=== PATIENT | male | born 1970 | race Caucasian/White ===

== ENCOUNTER 2023-08-10 13:18 | Emergency (ER) | payer BC, SELFPAY ==
[2023-08-10 13:53] VITALS: BP 113/74; PULSE 73; RESP 16; TEMP 35.9; O2SAT 99
--- NOTE | 2023-08-10 14:52 | ED.EAR ---
HPI - Ear Problem General Chief complaint: Ear Stated complaint: left ear pain Time Seen by Provider: 08/10/23 14:52 Source: patient Mode of arrival: ambulatory Limitations: no limitations History of Present Illness HPI Narrative: 52-year-old male presents with complaint of left ear pain for 2 months. Patient states he saw his primary care physician 2 months ago was told left ear was infected took Augmentin with no improvement in symptoms. States his daughter is a nurse practitioner and looked at his ear and said fluid on ear. Patient began taking Zyrtec and Flonase and has continues to not have any Improvement to left ear. denies hearing changes. Afebrile. All systems reviewed and negative except as noted above. Related Data Home Medications Medication Instructions Recorded Confirmed chlordiazepoxide HCl 10 mg capsule mg 08/10/23 fenofibrate 160 mg tablet mg 08/10/23 Allergies Allergy/AdvReac Type Severity Reaction Status Date / Time No Known Allergies Allergy Mild Unverified 03/01/19 07:47 Review of Systems Review of Systems: CONSTITUTIONAL: Denies fever, chills, or sweats. EYES: Denies visual changes, redness, or discharge. ENT: Denies rhinorrhea, congestion, sore throat . Reports left ear pain. CARDIOVASCULAR: Denies chest pain, palpitations, or edema. RESPIRATORY: Denies cough or dyspnea. GASTROINTESTINAL: Denies abdominal pain, nausea, vomiting, or diarrhea. GENITOURINARY: Denies dysuria or hematuria. SKIN: Denies rash or itching. MUSCULOSKELETAL: Denies back pain, joint pain, or myalgia. NEUROLOGIC: Denies headache, numbness, or weakness. PSYCHIATRIC: Denies anxiety or depression. All other systems reviewed are negative, except as documented in HPI. PMFSH Comments At time of signature, agree with nursing past medical, surgical, social and family history. There is no relevant family history pertinent to the presenting complaint. Exam Narrative: GENERAL: This is a well-nourished, well-developed patient, in no apparent distress. HEAD: normocephalic, atraumatic. EYES: PERRL. Sclera clear/white. Vision is grossly intact. EARS: External ears normal, auditory canals clear and without drainage, Fluid to left TM with mild erythema, retracted. Right TM normal. No perforation bilaterally. Hearing grossly intact. NOSE: External nose normal with no obvious nasal discharge, nares without redness, no rhinorrhea. THROAT: Mucous membranes moist, posterior pharynx clear. NECK: Neck supple, non-tender without lymphadenopathy, masses or thyromegaly. CARDIOVASCULAR: Regular rate and rhythm without murmurs, gallops, or rubs. RESPIRATORY: Clear to auscultation. Breath sounds equal bilaterally. No wheezes, rales, or rhonchi. SKIN: warm, Dry, intact with no suspicious lesions or rash, good texture and turgor. NEURO: awake, alert, and oriented to person, place and time. There were no obvious focal neurologic abnormalities. EXTREMITIES: No joint tenderness, effusion, or edema noted. Course Course Level of Care: Express Care Visit Vital Signs Vital signs: Vital Signs Temperature 35.9 C L 08/10/23 13:53 Pulse Rate 73 08/10/23 13:53 Respiratory Rate 16 08/10/23 13:53 Blood Pressure 113/74 08/10/23 13:53 Pulse Oximetry 99 08/10/23 13:53 Oxygen Delivery Room Air 08/10/23 13:53 Temperature 35.9 C L 08/10/23 13:53 Pulse Rate 73 08/10/23 13:53 Respiratory Rate 16 08/10/23 13:53 Blood Pressure 113/74 08/10/23 13:53 Pulse Oximetry 99 08/10/23 13:53 Oxygen Delivery Room Air 08/10/23 13:53 Reviewed Medical Decision Making MDM Narrative Medical decision making narrative: will treat with prednisone, cefdinir. Continue Zyrtec and Flonase. Refer to ENT if pain not improving. Patient is aware of diagnosis, understands and agrees to treatment plan. Anticipatory guidance given. Patient agrees to follow-up as directed and is aware of reasons to seek care a
== END 2023-08-10 15:13 | disposition home or self-care (01) ==
PROVIDERS: Emergency Provider Nurse Practitioner Family
DX: H65.02 Acute serous otitis media, left ear (principal)
CPT/HCPCS: 99213; G0463

== ENCOUNTER 2025-01-01 02:03 | Emergency (ER) | payer OTHER, SELFPAY ==
[2025-01-01] VITALS (21 sets, daily range): BP systolic 102–137; BP diastolic 69–92; PULSE 49–67; RESP 15–16; TEMP 35.7–36.6; O2SAT 91–100
--- NOTE | ~2025-01-01 | CT_ITS ---
Non-contrast CT scan of the Abdomen and Pelvis Clinical indication: Pain, recent right ureteral stent placement Technique: 2.5 mm axial scans were obtained through the abdomen and pelvis without intravenous or or al contrast. Dose reduction technique was used on this scan by utilizing automated exposure control a nd iterative reconstruction technique. The dose-length product (DLP) was 911.98 mGy-cm. Findings: Images through the lung bases reveal no abnormalities. 2 mm proximal right ureteral stone present (axial image 19). Additional probable punctate stone prese nt more proximal right ureter (axial image 107). Questionable tiny punctate stone of the distal right ureter (axial image 184). There is mild right hydroureteronephrosis. Probable left renal cyst presen t. No left hydronephrosis or left-sided stones are identified. The liver, spleen, pancreas, gallbladder, and adrenals appear normal. There is no aortic aneurysm. There is no evidence of bowel obstruction. Images through the pelvis were performed. There is no evidence of ascites or lymphadenopathy. Urinary bladder unremarkable. No pelvic mass seen. Impression: Probable 3 separate small right ureteral stones, largest measuring 2 mm, as detailed above. Mild right hydroureteronephrosis. No ureteral stent present on this exam. Reviewed, dictated and finalized at location . Impression: Probable 3 separate small right ureteral stones, largest measuring 2 mm, as det rema above. Mild right hydroureteronephrosis. No ureteral stent present on this exam.
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
--- OUTSIDE RECORDS SUMMARY | 2025-01-01 02:06 | XMS_ITS | Encounter Summary ---
Author Organization [facility] Address [address] [place] [address] Care Team Providers Care Hand Turner Name Role Phone Edgar Fall MD Primary Care Provider [phone] Encounter Details Date Type Department Care Team ([facility] st Contact Info) Description 10/30/2024 Results Follow-Up [facility] Primary Care [address] [place] [address] Kareem Polanco MD [address] [facility] [address] [place] [address] Surgical pathology Social History Tobacco Use Types Packs/Day Years Used Date Smoking Tobacco: Every Day Cigarettes 0.3 39.4 Started: 1985 Smokeless Tobacco: Never [facility] [employer] Answer Date Recorded In the past 12 months has [employer] electric, gas, oil, or water company threatened to shut off services in your home? No 12/08/2024 Social Connection and Isolat ion Panel [NHANES] Answer Date Recorded In a typical week, how many times do you talk on the phone with family, friends, or neighbors? More than three times a week 12/08/2024 How often do you get togethe r with friends or relatives? More than three times a week 12/08/2024 How often do you attend chur ch or sabianism services? 1 to 4 times per year 12/08/2024 Do you belong to any clubs o r organizations such as jew groups, unions, fraternal or athletic groups, or school groups? No 12/08/2024 How often do you attend meet ings of the clubs or organizations you belong to? Never 12/08/2024 Are you , , di vorced, , never , or living with a partner? 12/08/2024 AUDIT-C Answer Date Recorded Q1: How often do you have a drink containing alcohol? 4 or more times a week 12/28/2024 Q2: How many drinks containi ng alcohol do you have on a typical day when you are drinking? 1 or 2 Q3: How often do you have si x or more drinks on one occasion? Never 12/28/2024 Overall Financial Resource Strain (CARDIA) Answe r Date Recorded How hard is it for you to pa y for the very basics like food, housing, medical care, and heating? Not hard at all 12/08/2024 PHQ-2 Answer Date Recorded PHQ-2 Total Score (If total score is 3 or more points, staff should administer the PHQ-9) 0 01/21/2024 Hunger Vital Sign Answer Date Recorded Within the past 12 months, y ou worried that your food would run out before you got the money to buy more. Never true 12/09/19 25 Within the past 12 months, t he food you bought just didn't last and you didn't have money to get more. Never true 12/08/2024 PRAPARE - Transportation Answer Date Re corded In the past 12 months, has l ack of transportation kept you from medical appointments or from getting medications? No 11/11 In the past 12 months, has l ack of transportation kept you from meetings, work, or from getting things needed for daily living? No 12/08/2024 Housing Stability Vital Sign Answer Chuck e Recorded In the last 12 months, was t here a time when you were not able to pay the mortgage or rent on time? No 12/08/2024 In the past 12 months, how m any times have you moved where you were living? 0 12/08/2024 At any time in the past 12 m [facility], were you homeless or living in a retirement (including now)? No 12/08/2024 Personal Safety Answer Date Recorded Have you ever been in or are you currently in a harmful physical or emotional relationship or is someone making you feel afraid or unsafe? 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 4 or more times a week 12/28/2024 11:48 AM Linda Yoon RN Q2: How many drinks containing alcohol do you have on a typical day when you are drinking? 1 or 2 12/28/2024 11:48 AM Linda Yoon RN Q3: How often do you have six or more drinks on one occasion? Never 12/28/2024 11:48 AM Linda Yoon RN documented as of this encounter Miscellaneous Notes * Result Encounter Note - Kareem Polanco MD - 10/30/2024 7:25 AM CDT Your colon polyps were two tubular adenomas and several hyperplastic polyps. Adenomatous polyps arebenign but can turn into cancer in 10-15 years if left in. Hyperplastic polyps are of no concern. We removed your polyps so your risk is much lower. I recommend a repeat colonoscopy in 3 years based on the [employer] guidelines. If you develop rectal bleeding or other bowel changes you should be evaluated sooner. documented in this encounter Plan of Treatment Not on file documented as of this encounter Visit Diagnoses Not on filedocumented in this encounter Care Teams Hand Turner Relationship Specialty Start Date End Date Edgar Fall MD PCP - General Family Medicine 12/11/23 documented as of this encounter
--- OUTSIDE RECORDS SUMMARY | 2025-01-01 02:06 | XMS_ITS | Continuity of Care Document ---
Author Name Amber Ham Address [address] [place] [address] Organization Unknown Address [address] [place] [address] Medications No known medications Problems No known problems
--- OUTSIDE RECORDS SUMMARY | 2025-01-01 02:06 | XMS_ITS | Referral Summary ---
Author Organization [facility] Address [address] [place] [address] Care Team Providers Care Power Distribution Engineer Name Role Phone Edgar Fall MD Primary Care Provider [phone] Encounters Date Type Department Care Team Description 12/28/2024 1:15 PM CDT - 12/28/2024 2:55 PM CDT Surgery [facility] OR [address] [place] [phone] Juan C Goodrich MD RIGHT URETEROSCOPY WITH HOLMIUM LASER LITHOTRIPSY, RETROGRADE PYELOGRAM, URETERAL STENT PLACEMENT 12/28/2024 2:02 PM CDT Anesthesia Event [facility] OR [address] [place] [address] Wm Reeves MD Taylor-White, Carlotta A. BELL SPINNER 12/28/2024 11:18 AM CDT - 12/28/2024 6:23 PM CDT Hospital Encounter [facility] OR [address] [place] [address] Juan C Goodrich MD Kidney stone Discharge Disposition: Discharge to home or self care 12/21/2024 Telephone [facility] [address] [facility] [address] [place] [address] Kaylah Marcelino RMA 12/11/2024 12:55 PM CDT Lab [facility] [address] [place] [address] Kidney stone 12/08/2024 10:01 AM CDT - 12/09/2024 12:10 PM CDT Hospital Encounter [facility] [address] [address] Maki Gonzalez MD Winston, Jared Todd, MD Alcohol withdrawal syndrome with complication (HCC) (Primary Dx) Discharge Disposition: Discharge to home or self care 12/07/2024 Telephone [facility] Family Medicine at [address] [phone] Edgar Fall MD Medical Question/Miscellaneo us 12/02/2024 Orders Only [facility] Surgery [address] [place] [address] [address] [place] [address] Juan C Goodrich MD Kidney stone (Primary Dx) 11/27/2024 Telephone [facility] Surgery [address] [place] [phone] Kaylah Marcelino RMA 11/06/2024 Telephone [facility] Family Medicine at [address] [phone] Edgar Fall MD [facility] 11/05/2024 9:00 AM CDT Office Visit [facility] Family Medicine at [address] [phone] Rosalind Mota PA AFTAB (generalized anxiety disorder) (Primary Dx); Hypertriglyceridemia , essential; Primary insomnia; Male hypogonadism; Prediabetes; Vitamin D deficiency; Cigarette nicotine dependence without complication; Obesity (BMI 30-39.9); Screening for prostate cancer 11/03/2024 3:20 PM CDT Telemedicine [facility] Surgery [address] [place] [address] [address] [place] [address] Juan C Goodrich MD Renal cyst (Primary Dx); Kidney stone 10/30/2024 Results Follow-Up [facility] Primary Care [facility] [facility] [address] [place] [address] Kareem Polanco MD Surgical pathology 10/26/2024 9:24 AM CDT Anesthesia Event [facility] GI Lab [address] [place] [address] Moriah Bearden MD Suguitan, Karen E., CRNA 10/26/2024 8:30 AM CDT - 10/26/2024 9:00 AM CDT Surgery [facility] GI Lab [address] [place] [address] Kareem Polanco MD COLON REMOVAL SNARE 10/26/2024 7:23 AM CDT - 10/26/2024 10:53 AM CDT Hospital Encounter [facility] GI Lab [address] [place] [address] Kareem Polanco MD Colon polyps Discharge Disposition: Discharge to home or self care 10/23/2024 Orders Only [facility] Family Medicine at [address] [place] [phone] Edgar Fall MD AFTAB (generalized anxiety disorder) 10/22/2024 Telephone [facility] Family Medicine at [address] [place] [phone] Edgar Fall MD Authorization/Certif ication 10/18/2024 9:55 AM CDT - 10/18/2024 11:59 PM CDT Hospital Encounter [address] [address] Renal cyst Discharge Disposition: Discharge to home or self care from Last 3 Months Allergies No known active allergies Medications fenofibrate (TRIGLIDE) 160 mg tablet Take 1 tablet (160 mg total) by mouth daily 90 tablet 3 4 Active multivitamin-i swathi-folic acid 18-400 mg-mcg tablet Take 1 tablet by mouth daily 4 Active escitalopram (LEXAPRO) 10 mg tablet Take 1 tablet (10 mg total) by mouth every morning 90 tablet 3 4 Active testosterone cypionate (DEPO-TESTOTER ONE) 200 mg/mL injection Inject into the muscle as instructed every 14 (fourteen) days wednesdays 5 Active traZODone (DESYREL) 50 mg tabletIndicati ons:Primary insomnia Take 1 tablet (50 mg total) by mouth nightly 90 tablet 1 5 Active cyanocobalamin (Vitamin B-12) 1,000 mcg tabletIndicati ons:Prevention of Vitamin B12 Deficiency Take 1 tablet (1,000 mcg total) by mouth daily Active cholecalcifero l (VITAMIN D-3) 2000 unit tablet Take 1 tablet (2,000 Units total) by mouth daily Active ALPRAZolam XR (XANAX XR) 0.5 mg 24 hr tablet Take 1 tablet (0.5 mg total) by mouth as needed for anxiety Twice a day Active calcium-magnes ium-zinc 333-133-5 mg tablet Take 1 tablet by mouth daily 12/09/19 Discontinu ed(Therapy completed) vitamin B complex capsule Take 1 capsule by mouth daily 12/09/19 Discontinu ed(Alterna te therapy) vitamin D3-vitamin K2 25 mcg (1,000 unit)-90 mcg tablet,disinte grating Take by mouth 12/09/19 Discontinu ed(Alterna te therapy) ALPRAZolam (XANAX) 0.5 mg tabletIndicati ons:AFTAB (generalized anxiety disorder) Take 1 tablet (0.5 mg total) by mouth every 12 (twelve) hours as needed for anxiety 40 tablet 5 12/04/19 Discontinu ed(Reorder ) tirzepatide, weight loss, (Zepbound) 2.5 mg/0.5 mL pen injectorIndica tions:Obesity (BMI 30-39.9) Inject 0.5 mL (2.5 mg total) under the skin every 7 days 2 mL 1 5 12/09/19 Discontinu ed(Therapy completed) ALPRAZolam (XANAX) 0.5 mg tabletIndicati ons:AFTAB (generalized anxiety disorder) Take 1 tablet (0.5 mg total) by mouth every 12 (twelve) hours as needed for anxiety 40 tablet 5 12/10/19 Discontinu ed(Stop Taking at Discharge) LORazepam (ATIVAN) 0.5 mg tablet Take 1 tablet (0.5 mg total) by mouth every 8 (eight) hours as needed for other (alcohol withdrawal symptoms) for up to 3 days 9 tablet 5 12/23/19 Discontinu ed(Therapy completed) naltrexone (DEPADE) 50 mg tablet Take 1 tablet (50 mg total) by mouth daily 5 12/23/19 Discontinu ed(Therapy completed) LORazepam (ATIVAN) 0.5 mg tabletIndicati ons:anxiety Take 1 tablet (0.5 mg total) by mouth every 8 (eight) hours as needed for anxiety 12/29/19 Discontinu ed(Stop Taking at Discharge) HYDROcodone-ac etaminophen (NORCO) 5-325 mg per tabletIndicati ons:Pain Take 1 tablet by mouth every 6 (six) hours as needed for pain for up to 3 days 8 tablet 5 01/01/20 Active Problems Problem Noted Date Diagnosed Date Alcohol dependence with withdrawal 12/08/2024 Kidney stone 11/29/2024 Male hypogonadism 11/05/2024 S/P LASIK (laser assisted in situ keratomileusis) of both eyes 05/01/2024 Assessment & Plan (05/27/2024 11:15 AM CDT): 1 Month PO LASIK OU Good Vision Art tears PRN Recommend annual exams with regular eye doctor Assessment & Plan (05/05/2024 12:49 PM CDT): Normal LASIK Good Vision Moxi/Pred QID unitl 7 days PO Art tears as directed Return in 3 weeks Assessment & Plan (05/01/2024 11:22 AM CDT): One day PO LASIK OU Normal flaps Good Vision Continue Moxifloxacin/Prednisilone Acetate 1% QID Artificial tears as directed Return in 3-5 days Discussed post-operative activities Vitamin B12 deficiency 01/17/2024 Overview (01/17/2024): Vitamin B12 286 on 01/16/24 Folate >20 Renal cyst, left 01/17/2024 Overview (01/17/2024): CTA chest abd pelvis 01/16/24: 5.2 cm left renal cyst Alcohol withdrawal syndrome with complication Prediabetes 10/29/2023 Assessment & Plan (12/16/2023 1:40 PM CDT): Unknown control Repeat A1c Will see if Ozempic is covered for prediabetes and obesity Alcohol dependence in remission 10/28/2023 Assessment & Plan (12/16/2023 1:40 PM CDT): 3 weeks sober!!! Weaning off Librium to be on xanax for anxiety Assessment & Plan (10/28/2023 10:00 AM CDT): Could be better Currently sober Discussed Librium, Vivitrol injections, oral naltrexone, Antabuse Will trial naltrexone PO d/t insurance coverage limited for Vivitrol. Advised will not stop drinking but helps to [facility]. Encourage to continue counseling/AA/sponsors F/u 6 weeks Obesity (BMI 30-39.9) 10/28/2023 Assessment & Plan (12/16/2023 1:40 PM CDT): Advised dietary modification. Decrease carb intake (bread, rice, pasta, potatoes, etc.). Avoid processed foods. Shop perimeter of grocery store to avoid processed/starchy foods. Keep food diary to watch for extra calories. Increase lean proteins such as poultry/fish, non-starchy vegetables, & low sugar fruits such as berries, pears, apples, citrus. Minimize alcohol consumption. Increase exercise to 5 days of moderate intensity per week. Ensure adequate sleep of 6-8 hours per night. Discussed weight loss while in office. Goal to lose 30lbs. Will see if Ozempic covered for prediabetes and weight loss. Assessment & Plan (10/28/2023 10:03 AM CDT): Would benefit from improved diet and exercise habits. Naltrexone start may also help to lose weight. Bipolar depression 04/09/2023 Assessment & Plan (10/28/2023 9:59 AM CDT): Stable Continue Lexapro 10mg daily Refilled History of colon polyps 02/18/2023 Gastroesophageal reflux disease 07/20/2022 Overview (07/20/2022): Added automatically from request for surgery [id number] Rhinitis medicamentosa 04/26/2022 Hypertrophy of both inferior nasal turbinates Chronic maxillary sinusitis 04/26/2022 Nasal obstruction 03/12/2022 Varicose veins of left lower extremity with pain 10/05/2021 Obstructive sleep apnea 10/28/2019 Cigarette nicotine dependence without complicati on 04/03/2019 Essential hypertension 04/03/2019 Hypertriglyceridemia, essential 11/04/2017 Assessment & Plan (12/16/2023 1:37 PM CDT): Stable Continue fenofibrate Repeat lipid panel Assessment & Plan (10/28/2023 9:59 AM CDT): Stable 01/2023: total 135, LDL 68, trigs 260 Refill of fenofibrate Repeat labs at follow up. Vitamin D deficiency 11/05/2016 Insomnia 10/28/2016 AFTAB (generalized anxiety disorder) 10/25/2016 Assessment & Plan (12/16/2023 1:37 PM CDT): Controlled when taking Xanax Advised pt he cannot take Librium and Xanax together. Pt prefers Xanax since he is 3 weeks sober and through withdrawals. Advise not to take Xanax with alcohol. Refill of X[place]ax to pharm [place] reviewed 10/28/23 UDS 10/28/23 Assessment & Plan (10/28/2023 10:02 AM CDT): Not well controlled at night Has some trazodone to help with insomnia but does not help with racing thoughts Rx for Xanax to pharm since previously well-tolerated [place] reviewed 10/28/23 UDS ordered Discussed possibility of addiction and high risk medication. Advised not to misuse, sell, give medication. Must maintain compliance for continued refills. Male erectile disorder of organic origin 017 Resolved Problems Problem Noted Date Diagnosed Date Resolved Date Colon polyps 09/18/2024 11/05/2024 Hyperopia of both eyes 04/20/202405/01 Assessment & Plan (04/20/2024 3:06 PM CDT): Hyperopia Presbyopia Good ocular health LASIK OU with femtosecond laser flap creation Discussed risks of LASIK surgery. Discussed risk of dryness, glare and halo and flap complications. Discussed risk of enhancement surgery and no guarantee of 20/20 vision. Discussed risk of keratectasia. Discussed presbyopia and need for reading glasses. Trial framed -0.50 goal for non-dom eye Patient prefers distance OU. [facility]ed [facility] [place] Goal OU In House Encounter for screening colonoscopy 04/01/2024 11/05/2024 Colon polyp 05/16/2023 11/05/2024 Colon polyps 07/12/2022 04/09/2023 Overview (07/12/2022): Added automatically from request for surgery [id number] Deviated nasal septum 04/26/20222022 Screening for colon cancer 03/20/2022 0 04/09/2023 Overview (03/20/2022): Added automatically from request for surgery [id number] Abnormal fasting glucose 11/08/2017 Depression 11/04/2017 02/21/2023 Elevated BP without diagnosis of hypertension 11/05/19 18 04/09/2023 Anxiety 10/25/2016 11/05/2024 Immunizations Immunization Administration Dates Next Due Influenza, Unspecified 06/02/2024(Deferr ed: Patient Refused),07/10/2023(Deferred: Patient Refused),07/10/2023(Deferred: Patient Refused),04/09/2023(Deferred: Patient Refused),05/12/2022,08/12/2021(Deferred: Patient Refused),05/31/2021(Deferred: Patient Refused) Tdap 05/06/2020 Social History Tobacco Use Types Packs/Day Years Used Date Smoking Tobacco: Every Day Cigarettes 0.3 39.4 Started: 1985 Smokeless Tobacco: Never Tobacco Cessation:Ready to Q uit: Not Asked; Counseling Given: Not Answered [facility] Utilities Answer Date Recorded In the past 12 months has th e electric, gas, oil, or water company threatened [...] often do you attend chur ch or samaritan services? 1 to 4 times per year 12/08/2024 Do you belong to any clubs o r organizations such as jehovah's witness groups, unions, fraternal or athletic groups, or [...] any time in the past 12 m [facility], were you homeless or living in a assisted (including now)? No 12/08/2024 Personal Safety Answer Date Recorded Have you ever been in or are you currently in a harmful physical or emotional relationship or is someone making you feel afraid or unsafe? Denies 12/28/2024 Sex and Gender Information Value Date Recorded Sex Assigned at Not on file Legal Sex Male 12:02 PM FLATBED [employer]UCK [employer] Gender Identity Not on file Sexual Orientation Not on file Last Filed Vital Signs Vital Sign Reading Time Taken Comments Blood Pressure 136/85 12/28/2024 5:55 PM CDT Pulse 62 12/28/2024 5:55 PM CDT Temperature 36.3 C (97.4 F) 12/28/2024 3:55 PM CDT Respiratory Rate 16 12/28/2024 5:55 PM CDT Oxygen Saturation 97% 12/28/2024 5:55 PM CDT Inhaled Oxygen Concentration - - Weight 99.8 kg (220 lb 1.6 oz) 12/28/2024 11:49 AM CDT Height 180.3 cm (5' 11 ) 12/08/2024 1:25 PM CDT Body Mass Index 30.7 12/08/2024 1:25 PM CDT Plan of Treatment Not on file Medical Devices Implanted Type Area Supervisor Instant Pot[employer] Processing Device Identifier Shelf Expiration Date Model / Serial / Lot Plate Left: Leg Description:LEFT LEG [employer] [id number] Fr L28 Cm L145 Cm Radiopaque; Positioner; Filiform Flexible T - [id number] Implanted:Qty: 1 on 12/28/2024 by Juan C Goodrich MD at [facility] Right: Ureter [facility] [id number] 08/25/2027 [id number] / / [id number] Procedures Procedure Name Priority Date/Time Associated Diagnosis Comments FL RETRO PYELO (IN OR) IP Routine 12/28/2024 3:12 PM CDT FL AN PROCEDURE PLACEHOLDER Routine 12/28/2024 2:20 PM CDT FL AN ELECTIVE SUPRAGLOTTIC AIRWAY Routine 12/28/2024 2:20 PM CDT URETEROSCOPY STONE MANIPULATION WITH ABLATION LASER 12/28/2024 2:00 PM CDT Kidney stone URINE CULTURE Routine 12/11/2024 1:00 PM CDT Kidney stone EGFR Routine 12/09/2024 2:14 AM CDT DIFFERENTIAL AUTO Routine 12/09/2024 2:1 4 AM CDT CBC WITH AUTO DIFFERENTIAL Routine 12/09/2024 2:14 AM CDT PHOSPHORUS Routine 12/09/2024 2:14 AM CDT MAGNESIUM Routine 12/09/2024 2:14 AM CDT COMPREHENSIVE METABOLIC PANEL Routine 12/09/2024 2:14 AM CDT DRUGS OF ABUSE SCREEN, URINE WITHOUT CONFIRMATION Add-On 12/08/2024 5:28 PM CDT XR CHEST 1 VIEW IP Routine 12/08/2024 4:02 PM CDT MAGNESIUM Add On 12/08/2024 8:10 AM CDT PHOSPHORUS Add On 12/08/2024 8:10 AM CDT COMPREHENSIVE METABOLIC PANEL Add On 12/08/2024 8:10 AM CDT EGFR Add On 12/08/2024 8:10 AM CDT DIFFERENTIAL AUTO STAT 12/08/2024 8:1 0 AM CDT ETHANOL Add-On 12/08/2024 8:10 AM CDT CBC WITH AUTO DIFFERENTIAL STAT 12/08/2024 8:10 AM CDT SURGICAL PATHOLOGY Routine 10/26/2024 9: 44 AM CDT Colon polyps COLONOSCOPY 10/26/2024 9:23 AM CDT COLON REMOVAL SNARE 10/26/2024 9 :21 AM CDT Colon polyps Internal hemorrhoids POCT CREATININE FOR CONTRAST EVALUATION Routine 10/18/2024 10:[address] ABDOMEN W WO CONTRAST Schedule Routine, Read Routine (OP Routine) 10/18/2024 10:17 AM CDT Renal cyst PSA SCREEN Routine 05/22/2024 1:26 PM CDT Screening PSA (prostate specific antigen) from Last 3 Months or Most Recently Relevant to Health Maintenance Results * FL Retro Pyelo (In Or) (12/28/2024 3:12 PM CDT) Narrative [id number]_MHE - 12/28/2024 3:13 PM CDT The images from this study are not interpreted by Radiology. Please refer to the physician's procedure / OR operative note. us Juan C Goodrich MD IMG FLUOROSCOPY PROCEDURES Final Result RAD_[id number]_MHE * FL AN ELECTIVE SUPRAGLOTTIC AIRWAY, FL AN PROCEDURE PLACEHOLDER (12/28/2024 2:20 PM CDT) Narrative Imani Hinds CRNA - 12/28/2024 2:20 PM CDT Imani Hinds CRNA 12/28/2024 2:21 PM Airway Patient location: OR Urgency: elective Indications for airway management: anesthesia Difficult airway: no Staff: Supervising provider: Lucas Meléndez DO Placed by: [employer] SENIOR SERGEANT: Imani Hinds CRNA Emergent airway documentation: Risks and benefits discussed: yes Consent obtained: yes Airway prep: Preoxygenated: yes Patient position: sniffing MILS maintained throughout: yes Mask difficulty assessment: 0 - not attempted Spontaneous ventilation during airway: absent Sedation level during airway: deep Final airway details: Final airway type: supraglottic airway Final supraglottic airway: [place] SGA size: 5 Number of attempts: 1 us Lucas Meléndez DO ANESTHESIA ORDERABLES Final R esult * Urine culture Urine, bladder (12/11/2024 1:00 PM CDT) Report Final Report: Less than 100,000 colonies/mL (clinically insignificant growth based on current clinical standards) Comment:Testing performed by : [facility], [address] [place] [address]., [id number] Organism (CLINICALLY INSIGNIFICANT GROWTH [facility] Urine, bladder 12/11/2024 1: 00 PM CDT 12/11/2024 7:52 PM CDT Narrative SILVINA - 12/12/2024 9:41 PM CDT Testing performed by [facility] Microbiology Laboratory ([phone]) Juan C Goodrich MD LAB MICROBIOLOGY - GENERAL ORDER YAKELIN Final Result [facility] [address] [facility] Department [place] [address] * eGFR (12/09/2024 2:14 AM CDT) eGFR 78 >=60 mL/min/1. 73 m2 Comment: Interpretive Data Reference Interval Normal >/= 90 mL/min/1.73m2 Mildly decreased* 60 - 89 mL/min/1.73m2 Mildly to moderately decreased 45 - 59 mL/min/1.73m2 Moderately to severely decreased 30 - 44 mL/min/1.73m2 Severely decreased 15 - 29 mL/min/1.73m2 Kidney Failure < 15 mL/min/1.73m2 *Relative to young adult level Estimated glomerular filtration rate is determined by the 2020 CKD-EPI equation recommended by the National Kidney Foundation (A Unifying Approach to GFR Estimation: Recommendations of the NKF-ASK Task Force on Reassessing the Inclusion of Race in Diagnosing Kidney Disease, JASN 202). The CKD-EPI equation should not be used for patients with unstable renal function and has not been validated in children and those over 70. Current interpretive data was last reviewed 2021. Blood 12/09/2024 2:14 AM CDT 12/09/2024 2:57 AM CDT us Aida Barrett NP LAB BLOOD ORDERABLES Final R esult [place] [id number] [facility] Department [place] [address] * Differential, auto (12/09/2024 2:14 AM CDT) Pathologist [facility] Neutrophil abs 2.89 1.50 - 6.50 K/cumm Imm gran abs 0.03 0.00 - 0.10 K/cumm [facility] Lymphocyte abs 2.09 0.80 - 3.30 K/cumm [facility] Monocyte abs 0.66 0.20 - 0.80 K/cumm [facility] Eosinophil abs 0.11 0.00 - 0.50 K/cumm [facility] Basophil abs 0.05 0.00 - 0.10 K/cumm [facility] Neutrophil pct 49.6 % [facility] Comment: Interpretive Data Percent cell count reference ranges are not reported, since discordance with absolute values may lead to misinterpretation of CBC data. Current Interpretive Data was last revised on 2017. Imm gran pct 0.5 % [facility] Comment: Interpretive Data Percent cell count reference ranges are not reported, since discordance with absolute values may lead to misinterpretation of CBC data. Current Interpretive Data was last revised on 2017. Lymphocyte pct 35.8 % [facility] Comment: Interpretive Data Percent cell count reference ranges are not reported, since discordance with absolute values may lead to misinterpretation of CBC data. Current Interpretive Data was last revised on 2017. Monocyte pct 11.3 % [facility] Comment: Interpretive Data Percent cell count reference ranges are not reported, since discordance with absolute values may lead to misinterpretation of CBC data. Current Interpretive Data was last revised on 2017. Eosinophil pct 1.9 % [facility] Comment: Interpretive Data Percent cell count reference ranges are not reported, since discordance with absolute values may lead to misinterpretation of CBC data. Current Interpretive Data was last revised on 2017. Basophil pct 0.9 % [facility] Comment: Interpretive Data Percent cell count reference ranges are not reported, since discordance with absolute values may lead to misinterpretation of CBC data. Current Interpretive Data was last revised on 2017. Blood 12/09/2024 2:14 AM CDT 12/09/2024 2:58 AM CDT us Aida Barrett BELL SPINNER LAB BLOOD ORDERABLES Final R esult [facility] [address] [facility] Department [place] [address] * (ABNORMAL) CBC with auto differential (12/09/2024 2:14 AM CDT) WBC 5.83 3.80 - 9.90 K/cumm Hgb 16.6 13.0 - 17.5 g/dL [facility] Hct 48.0 38.9 - 50.3 % [facility] Plt 133(L) 150 - 400 K/cumm [facility] MPV 11.5 9.1 - 12.3 fL [facility] RBC 5.11 4.30 - 5.80 M/cumm [facility] MCV 93.9 81.3 - 96.4 fL [facility] MCH 32.5 27.1 - 33.3 pg [facility] MCHC 34.6 32.3 - 35.7 g/dL [facility] RDW CV 13.2 11.1 - 14.9 % [facility] RDW SD 45.4 35.7 - 48.1 fL [facility] NRBC abs 0.00 0.00 - 0.01 K/cumm [facility] Blood 12/09/2024 2:1 4 AM CDT 12/09/2024 2:58 AM CDT Aida Barrett BELL SPINNER LAB BLOOD ORDERABLES Final R esult Performing Organization Address [facility] de Phone Number [address] [x+1] [place] [address] * Phosphorus (12/09/2024 2:14 AM CDT) Pathologist [facility] Phosphorus, pl 3.0 2.3 - 4.5 mg/dL Blood 12/09/2024 2:14 AM CDT 12/09/2024 2:57 AM CDT Aida Barrett BELL SPINNER LAB BLOOD ORDERABLES Final R esult Performing Organization Address [facility] de Phone Number [address] [x+1] [place] [address] * Magnesium (12/09/2024 2:14 AM CDT) [facility] Magnesium 2.0 1.4 - 2.5 mg/dL Blood 12/09/2024 2:14 AM CDT 12/09/2024 2:57 AM CDT Aida Barrett BELL SPINNER LAB BLOOD ORDERABLES Final R esult Performing Organization Address [facility] de Phone Number [address] [x+1] [place] [address] * (ABNORMAL) Comprehensive metabolic panel (12/09/2024 2:14 AM CDT) Pathologist [facility] Sodium 136 135 - 145 mmol/L Potassium, pl 3.7 3.3 - 4.9 mmol/L [facility] Comment:Hemolyzed; Potassium value may be falsely elevated by as much as 1.0 mmol/L. Suggest redraw and reanalysis. Chloride 103 97 - 110 mmol/L [facility] CO2 21(L) 22 - 32 mmol/L [facility] Anion gap 12 2 - 15 mmol/L [facility] BUN 12 6 - 25 mg/dL [facility] Creatinine 1.13 0.80 - 1.30 mg/dL [facility] Glucose 99 70 - 199 mg/dL [facility] Comment: Interpretive Data Fasting glucose >/= 126 mg/dl is diagnostic for diabetes. Fasting is defined as no caloric intake for at least 8 hours. Fasting glucose between 100 mg/dl to 125 mg/dl is diagnostic of prediabetes. In a patient with classic symptoms of hyperglycemia or hyperglycemic crisis, a random glucose >/= 200 mg/dl is diagnostic for diabetes. In the absence of unequivocal hyperglycemia, results should be confirmed by repeat testing. The classification and Diagnosis of Diabetes Diabetes Care 2021; 46: S19-S40. Current interpretive data was last revised 2022. Calcium 9.0 8.5 - 10.3 mg/dL [facility] Bilirubin, total 0.5 0.1 - 1.2 mg/dL [facility] Protein, pl 6.0(L) 6.5 - 8.5 g/dL [facility] Albumin 3.8 3.5 - 5.0 g/dL [facility] Alk phos 49 40 - 130 Units/L [facility] ALT 12 7 - 55 Units/L [facility] AST See Comment 10 - 50 [facility] Comment:Credited; Hemolyzed Specimen Blood 12/09/2024 2:14 AM CDT 12/09/2024 2:57 AM CDT us Aida Barrett NP LAB BLOOD ORDERABLES Final R esult [facility] [address] [facility] Department [place] [address] * (ABNORMAL) Drugs of Abuse Screen, Urine without Confirmation (12/08/2024 5:28 PM CDT) [facility] Amphetamine, ur Not Detected CutOff 500ng/mL Comment: Interpretive Data - Amphetamines: Samples containing greater than 500 ng/mL d-methamphetamine or other cross-reacting amphetamine compounds are reported as positive. Amphetamine immunoassays are subject to significant false positive rates due to cross-reactivity of non-amphetamine drugs. Confirmatory testing required for definitive results. Current Interpretive Data was last reviewed 2023. Barbiturates, ur Not Detected CutOff 200ng/mL [facility] Comment: Interpretive Data - Barbiturates: Samples containing greater than 200 ng/mL secobarbital or other cross-reacting barbiturate compounds are reported as positive. False positive and false negative results are possible. Confirmatory testing required for definitive results. Current Interpretive Data was last reviewed 2023. Benzodiazepines, ur Screen Positive, presumptive (A) CutOff 100ng/mL [facility] Comment: Interpretive Data - Benzodiazepines: Samples containing greater than 100 ng/mL nordiazepam or other cross-reacting compounds are reported as positive. False positive and false negative results are possible. Confirmatory testing required for definitive results. Current Interpretive Data was last reviewed 2023. Cannabinoids, ur Screen Positive, presumptive (A) CutOff 50 ng/mL [facility] Comment: Interpretive Data - Cannabinoids: Samples containing greater than 50 ng/mL delta-9 THC -COOH or other cross- reacting compounds are reported as positive. False positive and false negative results are possible. Confirmatory testing required for definitive results. Current Interpretive Data was last reviewed 2023. Cocaine, ur Not Detected CutOff 150ng/mL [facility] Comment: Interpretive Data - Cocaine: Samples containing greater than 150 ng/mL benzoylecgonine or other cross- reacting compounds are reported as positive. False positive and false negative results are possible. Confirmatory testing required for definitive results. Current Interpretive Data was last reviewed 2023. Fentanyl, Ur Not Detected CutOff 5 ng/mL [facility] Comment: Interpretive Data - Fentanyl: Samples containing greater than 5 ng/mL norfentanyl, fentanyl, or other cross-reacting fentanyl compounds are reported as positive. False positive and false negative results are possible. Confirmatory testing required for definitive results. Current Interpretive Data was last reviewed 2023. Methadone, ur Not Detected CutOff 300ng/mL [facility] Comment: Interpretive Data - Methadone: Samples containing greater than 300 ng/mL d,l-methadone or other cross-reacting compounds are reported as positive. False positive and false negative results are possible. Confirmatory testing required for definitive results. Current Interpretive Data was last reviewed 2023. Opiates, ur Not Detected CutOff 300ng/mL [facility] Comment: Interpretive Data - Opiates: Samples containing greater than 300 ng/mL morphine or other cross-reacting compounds are reported as positive. False positive and false negative results are possible. Confirmatory testing required for definitive results. Current Interpretive Data was last reviewed 2023. Oxycodone, ur Not Detected CutOff 100ng/mL [facility] Comment: Interpretive Data - Oxycodone: Samples containing greater than 100 ng/mL oxycodone or other cross-reacting compounds are reported as positive. False positive and false negative results are possible. Confirmatory testing required for definitive results. Current Interpretive Data was last reviewed 2023. Phencyclidine, ur Not Detected CutOff 25 ng/mL [facility] Comment: Interpretive Data - Phencyclidine: Samples containing greater than 25 ng/mL phencyclidine or other cross-reacting compounds are reported as positive. False positive and false negative results are possible. Confirmatory testing required for definitive results. Current Interpretive Data was last reviewed 2023. Urine Creatinine 97 mg/dL [facility] Comment: Interpretive Data Urine Creatinine: < 10 mg/dL is extremely dilute = or > 10 but < 20 mg/dL is dilute = or > 20 mg/dL is normal Current Interpretive Data was last revised on 2017. Urine 12/08/2024 5:28 PM CDT 12/08/2024 5:35 PM CDT Narrative [facility] - 12/08/2024 5:59 PM CDT Drug of Abuse screening is performed by immunoassay for medical purposes only. This is not to be used for Pain Management purposes. us Aida Barrett NP LAB URINE ORDERABLES Final R esult [facility] [address] [facility] Department [place] [address] * XR Chest 1 View (12/08/2024 4:02 PM CDT) Anatomical Region Laterality Modality Body, Chest N/A Computed Radiogr aphy 12/08/2024 4:57 PM CDT Narrative 12/08/2024 4:58 PM CDT EXAM DESCRIPTION: XR CHEST 1 VIEW REASON FOR STUDY: leukopenia Pt chart sts: last drink of vodka was at 6 am. Pt was alcohol free for 9 months and relapsed a month ago. Pt reports she drinks a 5th of vodka daily TECHNIQUE: Single frontal radiographic view of the chest was acquired. COMPARISON: 01/15/2024 FINDINGS: LUNGS/PLEURA: There is no evidence of focal pulmonary infiltrate. There is no evidence of pneumothorax. There is no evidence of significant pleural effusion. HEART/MEDIASTINUM: The heart size is normal. There are normal mediastinal and hilar contours. HARDWARE/LINES/TUBES: None in the chest. BONES: No acute findings. OTHER: No other significant finding. IMPRESSION: No acute cardiopulmonary abnormality. THIS IS AN ELECTRONICALLY VERIFIED FINAL REPORT 12/08/2024 4:58 PM - Electronically signed by Steve Jean M.D. RW T: Report ID: [id number] Reading Location: [id number] Procedure Note Steve Jean MD - 12/08/2024 EXAM DESCRIPTION: XR CHEST 1 VIEW REASON FOR STUDY: leukopenia Pt chart sts: last drink of vodka was at 6 am. Pt was alcohol free for 9 months and relapsed a month ago. Pt reports she drinks a 5th of vodkadaily TECHNIQUE: Single frontal radiographic view of the chest was acquired. COMPARISON: 01/15/2024 FINDINGS: LUNGS/PLEURA: There is no evidence of focal pulmonaryinfiltrate. There is no evidence of pneumothorax. There is no evidence of significant pleural effusion. HEART/MEDIASTINUM: The heart size is normal. There are normal mediastinaland hilar contours. HARDWARE/LINES/TUBES: None in the chest. BONES: No acute findings. OTHER: No other significant finding. IMPRESSION: No acute cardiopulmonary abnormality. THIS IS AN ELECTRONICALLY VERIFIED FINAL REPORT 12/08/2024 4:58 PM - Electronically signed by Steve Jean M.D. RW T: Report ID: [id number] Reading Location: [id number] us Aida Barrett [facility] IMG XR PROCEDURES Final Resu lt * eGFR (12/08/2024 8:10 AM CDT) Pathologist [facility] eGFR 66 >=60 mL/min/1. 73 m2 Comment: Interpretive Data Reference Interval Normal >/= 90 mL/min/1.73m2 Mildly decreased* 60 - 89 mL/min/1.73m2 Mildly to moderately decreased 45 - 59 mL/min/1.73m2 Moderately to severely decreased 30 - 44 mL/min/1.73m2 Severely decreased 15 - 29 mL/min/1.73m2 Kidney Failure < 15 mL/min/1.73m2 *Relative to young adult level Estimated glomerular filtration rate is determined by the 2020 CKD-EPI equation recommended by the National Kidney Foundation (A Unifying Approach to GFR Estimation: Recommendations of the NKF-ASK Task Force on Reassessing the Inclusion of Race in Diagnosing Kidney Disease, JASN 2020). The CKD-EPI equation should not be used for patients with unstable renal function and has not been validated in children and those over 70. Current interpretive data was last reviewed 2021. Blood 12/08/2024 8:10 AM CDT 12/08/2024 8:13 AM CDT us Maki Gonzalez MD LAB BLOOD ORDERABLES Final Resu lt [facility] [address] [facility] Department [place] [address] * Differential, auto (12/08/2024 8:10 AM CDT) Pathologist [facility] Neutrophil abs 1.66 1.50 - 6.50 K/cumm Imm gran abs 0.02 0.00 - 0.10 K/cumm [facility] Lymphocyte abs 1.25 0.80 - 3.30 K/cumm [facility] Monocyte abs 0.48 0.20 - 0.80 K/cumm [facility] Eosinophil abs 0.05 0.00 - 0.50 K/cumm [facility] Basophil abs 0.04 0.00 - 0.10 K/cumm [facility] Neutrophil pct 47.5 % [facility] Comment: Interpretive Data Percent cell count reference ranges are not reported, since discordance with absolute values may lead to misinterpretation of CBC data. Current Interpretive Data was last revised on 2017. Imm gran pct 0.6 % [facility] Comment: Interpretive Data Percent cell count reference ranges are not reported, since discordance with absolute values may lead to misinterpretation of CBC data. Current Interpretive Data was last revised on 2017. Lymphocyte pct 35.7 % [facility] Comment: Interpretive Data Percent cell count reference ranges are not reported, since discordance with absolute values may lead to misinterpretation of CBC data. Current Interpretive Data was last revised on 2017. Monocyte pct 13.7 % [facility] Comment: Interpretive Data Percent cell count reference ranges are not reported, since discordance with absolute values may lead to misinterpretation of CBC data. Current Interpretive Data was last revised on 2017. Eosinophil pct 1.4 % [facility] Comment: Interpretive Data Percent cell count reference ranges are not reported, since discordance with absolute values may lead to misinterpretation of CBC data. Current Interpretive Data was last revised on 2017. Basophil pct 1.1 % [facility] Comment: Interpretive Data Percent cell count reference ranges are not reported, since discordance with absolute values may lead to misinterpretation of CBC data. Current Interpretive Data was last revised on 2017. Blood 12/08/2024 8:10 AM CDT 12/08/2024 8:13 AM CDT us Rehab Carlos DUFFY LAB BLOOD ORDERABLES Final Resu lt [facility] [address] [facility] Department [place] [address] * (ABNORMAL) CBC with auto differential (12/08/2024 8:10 AM CDT) WBC 3.50(L) 3.80 - 9.90 K/cumm Hgb 16.3 13.0 - 17.5 g/dL [facility] Hct 46.8 38.9 - 50.3 % [facility] Plt 140(L) 150 - 400 K/cumm [facility] MPV 10.6 9.1 - 12.3 fL [facility] RBC 4.95 4.30 - 5.80 M/cumm [facility] MCV 94.5 81.3 - 96.4 fL [facility] MCH 32.9 27.1 - 33.3 pg [facility] MCHC 34.8 32.3 - 35.7 g/dL [facility] RDW CV 13.3 11.1 - 14.9 % [facility] RDW SD 46.1 35.7 - 48.1 fL [facility] NRBC abs 0.00 0.00 - 0.01 K/cumm [facility] Blood 12/08/2024 8:10 AM CDT 12/08/2024 8:13 AM CDT Maki Gonzalez MD LAB BLOOD ORDERABLES Final Resu lt Performing Organization Address City/[facility]/ZIP Co de Phone Number [address] [place] [address] * (ABNORMAL) Phosphorus (12/08/2024 8:10 AM CDT) Pathologist [facility] Phosphorus, pl 2.2(L) 2.3 - 4.5 mg/dL Blood 12/08/2024 8:10 AM CDT 12/08/2024 8:13 AM CDT Jimbo Slaughter MD LAB BLOOD ORDERABLES Final Result Performing Organization Address City/[facility] Hospital/[facility] Co de Phone Number [address] [place] [address] * Magnesium (12/08/2024 8:10 AM CDT) Pathologist [facility] Magnesium 1.8 1.4 - 2.5 mg/dL Blood 12/08/2024 8:10 AM CDT 12/08/2024 8:13 AM CDT Jimbo Slaughter MD LAB BLOOD ORDERABLES Final Result Performing Organization Address City/[facility] Co de Phone Number [facility] [address] [facility] [place] [address] * (ABNORMAL) Ethanol (12/08/2024 8:10 AM CDT) Ethanol 102(H) <=10 mg/dL Comment: Interpretive Data Legal limit of intoxication > or = 80 mg/dL Levels > or = 400 mg/dL are potentially TOXIC. Current interpretive data was last revised on 2018. Blood 12/08/2024 8:10 AM CDT 12/08/2024 8:13 AM CDT Sol LIANG LAB BLOOD ORDERABL ES Final Result Performing Organization Address [facility] Co de Phone Number [facility] [address] [place] [address] * (ABNORMAL) Comprehensive metabolic panel (12/08/2024 8:10 AM CDT) [facility] Sodium 141 135 - 145 mmol/L Potassium, pl 4.0 3.3 - 4.9 mmol/L [facility] Chloride 109 97 - 110 mmol/L [facility] CO2 22 22 - 32 mmol/L [facility] Anion gap 10 2 - 15 mmol/L [facility] BUN 13 6 - 25 mg/dL [facility] Creatinine 1.29 0.80 - 1.30 mg/dL [facility] Glucose 116 70 - 199 mg/dL [facility] Comment: Interpretive Data Fasting glucose >/= 126 mg/dl is diagnostic for diabetes. Fasting is defined as no caloric intake for at least 8 hours. Fasting glucose between 100 mg/dl to 125 mg/dl is diagnostic of prediabetes. In a patient with classic symptoms of hyperglycemia or hyperglycemic crisis, a random glucose >/= 200 mg/dl is diagnostic for diabetes. In the absence of unequivocal hyperglycemia, results should be confirmed by repeat testing. The classification and Diagnosis of Diabetes Diabetes Care 2021; 46: S19-S40. Current interpretive data was last revised 2022. Calcium 8.9 8.5 - 10.3 mg/dL [facility] Bilirubin, total 0.2 0.1 - 1.2 mg/dL [facility] Protein, pl 6.1(L) 6.5 - 8.5 g/dL [facility] Albumin 3.9 3.5 - 5.0 g/dL [facility] Alk phos 54 40 - 130 Units/L [facility] ALT 14 7 - 55 Units/L [facility] AST 20 10 - 50 Units/L [facility] Blood 12/08/2024 8:10 AM CDT 12/08/2024 8:13 AM CDT us Rehab Carlos DUFFY LAB BLOOD ORDERABLES Final Resu lt [facility] [address] Department [place] [address] * Surgical pathology (10/26/2024 9:44 AM CDT) Tissue specimen (specimen) (Polyp(s), colon/colorectal, esophageal, gastric) 10/26/2024 9:44 AM CDT Tissue specimen (specimen) (Polyp(s), colon/colorectal, esophageal, gastric) 10/26/2024 9:56 AM CDT Tissue specimen (specimen) (Polyp(s), colon/colorectal, esophageal, gastric) 10/26/2024 10:04 AM CDT Narrative PATHOLOGY [facility] - 10/28/2024 11:54 AM CDT [facility] Department of Pathology [address] [place] [id number] Note to Patients: This report may contain a detailed description of human tissue sent by a health care provider to the laboratory for pathologic evaluation. The content of this report is essential for diagnosis and may provide important critical findings. This information may be unfamiliar to patients to review without a medical professional present. It is advised that the patient review this report in the presence of a health care provider who can answer questions and explain the details. Final Report Patient Name: REY ARZATE : 1970 (Age: 53) Gender: M Address: [address] [place] [address] Hospital #: [id number] Service: Surgery Location: Patient Type: [facility] OUTPATIENT Taken: 10/26/2024 Received: 10/26/2024 Accessioned: 10/26/2024 Reported: 10/28/2024 Physician(s): Sherif Patterson M.D. Diagnosis: A. Cecum, polyps x2, biopsy - Fragments of tubular adenomas B. Transverse colon, polyps x2, biopsy - Hyperplastic polyp(s) and colonic mucosa with patchy fresh mucosal hemorrhage C. Sigmoid colon, polyp, biopsy - Hyperplastic polyp Mikhail Oconnell M.D. Report Electronically Reviewed and Signed Out By Mikhail Oconnell M.D. 10/28/2024 11:54:44 Specimen(s) Received: A: Cecal polyp x2 cold snare B: Transverse colon polyp x2 cold snare C: Sigmoid polyp cold snare Microscopic Description: Microscopic examination is performed. Additional deeper levels examined on parts B and C. Microscopic examination is performed. Additional deeper levels examined on parts B and C. Clinical History: The patient is a 53-year-old man with colon polyps. Operative procedure: Colonoscopy with biopsy. Gross Description Received in three formalin jars labeled with the patient's identifiers. A. Labeled cecal polyp x2 cold snare and consists of five harman tissue fragments ranging from 0.2-0.6 cm. Entirely submitted. Labeled A1. Jar 0. B. Labeled transverse colon polyp x2 cold snare and consists of six harman-red tissue fragments ranging from 0.3-0.6 cm. Entirely submitted. Labeled B1. Jar 0. C. Labeled sigmoid polyp cold snare and consists of a 0.5 cm harman-pink tissue fragment admixed with debris. Entirely submitted. Labeled C1. Jar 0. jjmhb/10/26/2024 13:46 JUANITA Mullins, PA (ASCP) Microscopic slide review and interpretation for this case was performed at [facility], Department of Surgical Pathology, [address] [facility], [place] [id number], [place] [address] CLIA # [id number] us Kareem Polanco MD LAB PATHOLOGY ORDERABLES Final Result PATHOLOGY [facility] * Colonoscopy (10/26/2024 9:23 AM CDT) Anatomical Region Laterality Modality Other Narrative Procedure Note Kareem Polanco MD - 10/26/2024 9:23 AM CDT [facility] GI ENDOSCOPY Patient Name: Rey Arzate Procedure Date: 10/26/2024 9:23 AM Date of : 1970 Admit Type: Outpatient Age: 53 Gender: Male Attending MD: Kareem Polanco M.D. Room: [facility] ENDOSCOPY ROOM 05 Note Status: Finalized Procedure: Colonoscopy Indications: High risk colon cancer surveillance: Personalhistory of colonic polyps Referring MD: Edgar Fall M.D. Providers: Kareem Polanco M.D. Medicines: Monitored Anesthesia Care Complications: No immediate complications. Estimated Blood Loss: Estimated blood loss was minimal. Procedure: The benefits, risks and alternatives of theprocedure and sedation were discussed and informed consentwas obtained. All questions were answered. Please referto the signed informed consent document in the medical record. The scope was passed under direct vision.The [id number] was introduced through theanus and advanced to the cecum, identified byappendiceal orifice and ileocecal valve. The colonoscopy was performed without difficulty. The patient tolerated the procedure well. The quality of the bowel preparation was evaluated using the BBPS (BostonBowel Preparation Scale) with scores of: Right Colon = 3, Transverse Colon = 3 and Left Colon = 3 (entiremucosa seen well with no residual staining, smallfragments of stool or opaque liquid). The total BBPS score equals 9. Findings: Two sessile polyps were found in the cecum. The polyps were 4 to 6 mmin size. These polyps were removed with a cold snare. Resection and retrieval were complete. Estimated blood loss was minimal. Two sessile polyps were found in the transverse colon. The polypswere 4 to 5 mm in size. These polyps were removed with a cold snare.Resection and retrieval were complete. Estimated blood loss was minimal. A 3 mm polyp was found in the sigmoid colon. The polyp was sessile.The polyp was removed with a cold snare. Resection and retrieval were complete. Estimated blood loss was minimal. Non-bleeding internal hemorrhoids were found during retroflexion. The hemorrhoids were moderate. The exam was otherwise without abnormality on direct and retroflexion views. Impression: - Two 4 to 6 mm polyps in the cecum, removed with a cold snare. Resected and retrieved. - Two 4 to 5 mm polyps in the transverse colon, removed with a cold snare. Resected andretrieved. - One 3 mm polyp in the sigmoid colon, removed witha cold snare. Resected and retrieved. - Non-bleeding internal hemorrhoids. - The examination was otherwise normal on directand retroflexion views. Recommendation: - Discharge patient to home. - Resume previous diet. - Continue present medications. - Await pathology results. - Repeat colonoscopy in 3 years for surveillance. - Patient has a contact number available for emergencies. The signs and symptoms of potential delayed complications were discussed with thepatient. Return to normal activities tomorrow. Written discharge instructions were provided to thepatient. Kareem Polanco, M.D. Kareem Polanco M.D. 10/26/2024 10:15:22 AM . Number of Addenda: 0 Note Initiated On: 10/26/2024 9:23 AM Recognized by the [employer] [place] [employer] G[employer]intestinal [employer] for promoting quality in endoscopy Kareem Polanco MD ENDOSCOPY PROCEDURES Fin al Result * (ABNORMAL) POCT creatinine for contrast evaluation (10/18/2024 10:19 AM CDT) Creatinine POC 1.40(H) 0.80 - 1.30 mg/dL Comment:Testing performed by : [facility], [address] [place] [address]., [id number] Blood 10/18/2024 10:1 9 AM CDT 10/18/2024 10:19 AM CDT Edgar Fall MD POINT OF CARE TEST ORDERABLES Final Result [facility] [address] [facility] Department [place] [address] * CT Abdomen W WO Contrast (10/18/2024 10:17 AM CDT) Anatomical Region Laterality Modality Body N/A Computed Tomogra phy 10/22/2024 8:36 AM CDT Narrative 10/22/2024 8:48 AM CDT EXAM DESCRIPTION: CT ABDOMEN W WO CONTRAST REASON FOR STUDY: Renal cyst FU left kidney cyst Pt complaining of right flank pain x 2 months TECHNIQUE: CT scan of the abdomen performed without and with intravenous and without oral contrast using helical scanning technique with dynamic intravenous contrast injection. Precontrast, nephrographic phase, and excretory phases were acquired.. Reconstructed coronal and sagittal MPR images reviewed. All images stored on PACS. Automated exposure control was used as a dose optimization technique for this examination. CONTRAST TYPE/DOSE: 100mL of IOVERSOL 350 MG IODINE/ML INTRAVENOUS SYRINGE injected via intravenous COMPARISON: None available. FINDINGS: KIDNEYS: There is a 5 mm nonobstructing calculus in the lower pole of the right kidney. There is no hydronephrosis or proximal hydroureter. There are a few subcentimeter low-attenuation lesions in the kidneys bilaterally which are too small to be characterized. In the posterolateral aspect of the inferior pole of the right kidney there is a 1.5 cm exophytic lesion that does not enhance and is consistent with a simple cyst. In the posterolateral aspect of the left kidney there is an exophytic nonenhancing lesion measuring 5.7 x 3.0 x 4.5 cm, consistent with a simple cyst. ABDOMEN: LOWER CHEST: There is bibasilar subsegmental atelectasis. LIVER: Normal size. No identified cystic or solid masses. GALLBLADDER: No stones identified. No wall thickening or inflammatory changes. BILE DUCTS: No intrahepatic or extrahepatic ductal dilatation. SPLEEN: Normal size. No focal lesions. PANCREAS: No identified cystic or solid masses. No significant calcifications. No adjacent inflammation or peripancreatic fluid collections. Pancreatic duct not dilated. ADRENALS: Normal. GI: Bowel is incompletely imaged. No dilated bowel loops. No obvious wall thickening. Normal appendix. No significant diverticular disease. PERITONEUM: No ascites or free air. RETROPERITONEUM: No mass or adenopathy. VASCULATURE: No abdominal aortic aneurysm. MUSCULOSKELETAL: No suspicious osseous lesions. OTHER: No other abnormality. IMPRESSION: 1. Bilateral simple renal cysts. There is no prior comparison study available. If the patient has prior imaging demonstrating renal abnormalities, recommend uploading these studies for comparison and an addendum. 2. 5 mm nonobstructing calculus in the lower pole of the right kidney. THIS IS AN ELECTRONICALLY VERIFIED FINAL REPORT 10/22/2024 8:48 AM - Electronically signed by Justin Victoria M.D. AM: AM Report ID: [id number] Reading Location: [id number] Procedure Note Justin Victoria MD - 10/22/2024 EXAM DESCRIPTION: CT ABDOMEN W WO CONTRAST REASON FOR STUDY: Renal cyst FU left kidney cyst Pt complaining of right flank pain x 2 months TECHNIQUE: CT scan of the abdomen performed without and withintravenous and without oral contrast using helical scanning technique with dynamic intravenous contrast injection. Precontrast, nephrographic phase, and excretory phases were acquired.. Reconstructed coronal and sagittal MPRimages reviewed. All images stored on PACS. Automated exposure control was usedas a dose optimization technique for this examination. CONTRAST TYPE/DOSE: 100mL of IOVERSOL 350 MG IODINE/ML INTRAVENOUSSYRINGE injected via intravenous COMPARISON: None available. FINDINGS: KIDNEYS: There is a 5 mm nonobstructing calculus in the lowerpole of the right kidney. There is no hydronephrosis or proximal hydroureter. There are a few subcentimeter low-attenuation lesions in the kidneys bilaterally which are too small to be characterized. In theposterolateral aspect of the inferior pole of the right kidney there is a 1.5 cmexophytic lesion that does not enhance and is consistent with a simple cyst. In the posterolateral aspect of the left kidney there is an exophyticnonenhancing lesion measuring 5.7 x 3.0 x 4.5 cm, consistent with a simple cyst. ABDOMEN: LOWER CHEST: There is bibasilar subsegmental atelectasis. LIVER: Normal size. No identified cystic or solid masses. GALLBLADDER: No stones identified. No wall thickening or inflammatory changes. BILE DUCTS: No intrahepatic or extrahepatic ductal dilatation. SPLEEN: Normal size. No focal lesions. PANCREAS: No identified cystic or solid masses. No significant calcifications. No adjacent inflammation or peripancreatic fluidcollections. Pancreatic duct not dilated. ADRENALS: Normal. GI: Bowel is incompletely imaged. No dilated bowel loops. No obviouswall thickening. Normal appendix. No significant diverticular disease. PERITONEUM: No ascites or free air. RETROPERITONEUM: No mass or adenopathy. VASCULATURE: No abdominal aortic aneurysm. MUSCULOSKELETAL: No suspicious osseous lesions. OTHER: No other abnormality. IMPRESSION: 1. Bilateral simple renal cysts. There is no priorcomparison study available. If the patient has prior imaging demonstrating renal abnormalities, recommend uploading these studies for comparison and an addendum. 2. 5 mm nonobstructing calculus in the lower pole of the right kidney. THIS IS AN ELECTRONICALLY VERIFIED FINAL REPORT 10/22/2024 8:48 AM - Electronically signed by Justin Victoria M.D. AM: AM Report ID: [id number] Reading Location: [id number] Juan C Goodrich MD IMG CT PROCEDURES Final Result * PSA screen (05/22/2024 1:26 PM CDT) PSA 0.92 < OR = 4.00 ng/mL [facility] Comment: The total PSA value from this assay system is standardized against the WHO standard. The test result will be approximately 20% lower when compared to the equimolar-standardized total PSA (Leo Krunal). Comparison of serial PSA results should be interpreted with this fact in mind. This test was performed using the Siemens chemiluminescent method. Values obtained from different assay methods cannot be used interchangeably. PSA levels, regardless of value, should not be interpreted as absolute evidence of the presence or absence of disease. Blood 05/22/2024 1:26 PM CDT 05/22/2024 1:27 PM CDT us Edgar Fall MD LAB BLOOD ORDERABLES Final Re sult [facility] [address] [place] [address] from Last 3 Months or Most Recently Relevant to Health Maintenance Insurance [facility] CHOICE PLUS [facility] HMO/PPO Address: [facility] [id number] [place] [id number] [facility] CHOICE PLUS [facility] HMO/PPO Address: [facility] [address] [place] [address] Advance Directives For more information, please contact: [phone] * Full Code (Latest Code Status on File) Date Activated Date Inactivated Comments 12/08/2024 11:56 AM 12/09/2024 4:28 PM * Full Code Date Activated Date Inactivated Comments 01/15/2024 11:27 PM 01/18/2024 5:26 PM 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
--- OUTSIDE RECORDS SUMMARY | 2025-01-01 02:06 | XMS_ITS | Clinical Summary ---
Author Organization [facility] Address [facility] [place] [address] Care Team Providers Care Medical Underwriter Name Role Phone Unavailable Primary Care Provider Unavailabl e Source Comments [facility],non-owned Affiliates and Associated Physician Practices is amultiple site organization consisting of ambulatory clinics and hospital sitesin [place], [place], [place] and [place]. This disclosure is being madepursuant to the Care Everywhere program and may not contain all information available regarding this patient. 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 Gender Identity Not on file Sexual Orientation Not on file Plan of Treatment Health Maintenance Due Date Last Done Comments COLOGUARD (AGES 45-75) - COL ON CA SCREENING 1970 COLON MONITORING 1970 COLONOSCOPY - COLON CA SCREENING 1970 CT COLONOGRAPHY - COLON CA SCREENING 1970 Colorectal Cancer Screening 1970 FIT - COLON CA SCREENING 1970 FLEX SIG - COLON CA SCREENING 1970 LIPID TESTING 1970 HIV SCREENING 1985 HEPATITIS C SCREENING 12/05/1988 DTAP/TDAP/TD VACCINES (1 - Tdap) 1989 HEPATITIS B VACCINE (1 of 3 - 19+ 3-dose series) 1989 PNEUMOCOCCAL VACCINE 50+ (1 of 1 - PCV) 2020 ZOSTER VACCINE (1 of 2) 2020 COVID-19 VACCINE (1 - 2023-2 5 season) 2024 DEPRESSION SCREENING 08/12/2024 INFLUENZA VACCINE (Season Ended) 2025 HIB VACCINE Aged Out No longer eligi ble based on patient's age to complete this topic HPV VACCINE Aged Out No longer eligi ble based on patient's age to complete this topic MENINGOCOCCAL (Group B) VACC INE SHARED DECISION-MAKING Aged Out No longer eligibl e based on patient's age to complete this topic MENINGOCOCCAL GROUPS A/C/Y/W VACCINE Aged Out No longer eligible b ased on patient's age to complete this topic
--- OUTSIDE RECORDS SUMMARY | 2025-01-01 02:06 | XMS_ITS | Continuity of Care Document ---
Author Name Tong Pham Address [address] [address] [place] [address] Organization Unknown Address [address] [place] [address] Medications Problems
--- OUTSIDE RECORDS SUMMARY | 2025-01-01 02:06 | XMS_ITS | Clinical Summary ---
Author Organization [facility], [place] [facility] Office Center Address [address] [place] [address] Care Team Providers Care Pilot Captain Name Role Phone Edgar Fall MD Primary Care Provider [phone] Allergies No known active allergies Medications fenofibrate [...] to 3 days 8 tablet 5 01/01/20 25 Active Problems Problem Noted Date Diagnosed Date [...] (07/20/2022): Added automatically from request for surgery [id number] Rhinitis medicamentosa 04/26/2022 Hypertrophy of both inferior [...] distance OU. Discussed Near [facility] [place] [facility] OU In House Encounter for screening colonoscopy 04/01/2024 11/05/2024 Colon polyp 05/16/2023 11/05/2024 Colon polyps 07/12/2022 04/09/2023 Overview (07/12/2022): Added automatically from request for surgery [id number] Deviated nasal septum 04/26/20222022 Screening for colon cancer 03/20/2022 0 04/09/2023 Overview (03/20/2022): Added automatically from request for surgery [id number] Abnormal fasting glucose 11/08/2017 Depression 11/04/2017 02/21/2023 Elevated BP without diagnosis of hypertension 11/05/19 18 04/09/2023 Anxiety 10/25/2016 11/05/2024 Encounters Date Type Department Care Team Description 12/28/2024 2:02 PM CDT Anesthesia Event [facility] OR [address] [place] [address] Wm Reeves MD Taylor-White, Carlotta A. ASSISTANT TO THE CEO 12/28/2024 1:15 PM CDT - 12/28/2024 2:55 PM CDT Surgery [facility] OR [address] [place] [address] Juan C Goodrich MD RIGHT URETEROSCOPY WITH HOLMIUM LASER LITHOTRIPSY, RETROGRADE PYELOGRAM, URETERAL STENT PLACEMENT 12/28/2024 11:18 AM CDT - 12/28/2024 6:23 PM CDT Hospital Encounter [facility] OR [address] [place] [address] Juan C Goodrich MD Kidney stone Discharge Disposition: Discharge to home or self care 12/21/2024 Telephone [facility] Surgery [address] [place] [address] Kaylah Marcelino RMA 12/11/2024 12:55 PM CDT Lab [facility] [address] [place] [address] Kidney stone 12/08/2024 10:01 AM CDT - 12/09/2024 12:10 PM CDT Hospital Encounter [facility] [address] [address] Maki Gonzalez MD Winston, Jared Todd, MD Alcohol withdrawal syndrome with complication (HCC) (Primary Dx) Discharge Disposition: Discharge to home or self care 12/07/2024 Telephone [facility] Family Medicine at [address] [place] [phone] Edgar Fall MD Medical Question/Miscellaneo us 12/02/2024 Orders Only [facility] Surgery [address] [place] [address] [address] [place] [address] Juan C Goodrich MD Kidney stone (Primary Dx) 11/27/2024 Telephone [facility] Surgery [address] [place] [address] [address] [place] [address] Kaylah Marcelino RMA 11/06/2024 Telephone [facility] Family Medicine at [address] [place] [phone] Edgar Fall MD zepbound PA 11/05/2024 9:00 AM CDT Office Visit [facility] Family Medicine at [address] [place] [phone] Rosalind Mota PA AFTAB (generalized anxiety disorder) (Primary Dx); Hypertriglyceridemia , essential; Primary insomnia; Male hypogonadism; Prediabetes; Vitamin D deficiency; Cigarette nicotine dependence without complication; Obesity (BMI 30-39.9); Screening for prostate cancer 11/03/2024 3:20 PM CDT Telemedicine [facility] Surgery [address] [place] [address] [address] [place] [address] Juan C Goodrich MD Renal cyst (Primary Dx); Kidney stone 10/30/2024 Results Follow-Up [facility] Primary Care [address] [place] [address] [address] [place] [address] Kareem Polanco MD Surgical pathology 10/26/2024 9:24 AM CDT Anesthesia Event [facility] GI Lab [address] [place] [address] Moriah Bearden MD Suguitan, Karen E., CRNA 10/26/2024 8:30 AM CDT - 10/26/2024 9:00 AM CDT Surgery [facility] GI Lab [address] [place] [address] Kareem Polanco MD COLON REMOVAL SNARE 10/26/2024 7:23 AM CDT - 10/26/2024 10:53 AM CDT Hospital Encounter [facility] Lab [address] [place] [address] Kareem Polanco MD Colon polyps Discharge Disposition: Discharge to home or self care 10/23/2024 Orders Only [facility] Family Medicine at [address] [place] [address] Edgar Fall MD AFTAB (generalized anxiety disorder) 10/22/2024 Telephone [facility] Family Medicine at [address] [place] [address] Edgar Fall MD Authorization/Certif ication 10/18/2024 9:55 AM CDT - 10/18/2024 11:59 PM CDT Hospital Encounter [address] [address] Renal cyst Discharge Disposition: Discharge to home or self care from Last 3 Months Immunizations Immunization Administration Dates Next Due Influenza, Unspecified 06/02/2024(Deferr ed: Patient Refused),07/10/2023(Deferred: Patient Refused),07/10/2023(Deferred: Patient Refused),04/09/2023(Deferred: Patient Refused),05/12/2022,08/12/2021(Deferred: Patient Refused),05/31/2021(Deferred: Patient Refused) Tdap 05/06/2020 Surgical History Surgery Date Site/Laterality Comments LEG SURGERY Left VASECTOMY UPPER GASTROINTESTINAL ENDOSCOPY COLONOSCOPY Medical History Medical History Date Comments Anxiety Hypertension Vitamin D deficiency Depression 11/04/2017 Hypertriglyceridemia, essential 11/04/2017 Colon polyps 07/12/2022 Gastroesophageal reflux disease 07/20/2022 Obesity (BMI 30-39.9) 10/28/2023 Kidney stone 11/29/2024 Allergic rhinitis Cyst of left kidney left Family History Medical History Relation Name Comments Heart disease Father No Known Problems Mother Colon cancer Neg Hx Prostate cancer Neg Hx Relation Name Status Comments Father Alive Mother Alive Social History Tobacco Use Types Packs/Day Years Used Date Smoking Tobacco: Every Day Cigarettes 0.3 39.4 Started: 1985 Smokeless Tobacco: Never Tobacco Cessation:Ready to Q uit: Not Asked; Counseling Given: Not Answered [facility] Utilities Answer Date Recorded In the past 12 months has [employer], gas, oil, or water company threatened to [...] often do you attend chur ch or mandaeism services? 1 to 4 times per year 12/08/2024 Do you belong to any clubs o r organizations such as orthodox groups, unions, fraternal or athletic groups, or [...] any time in the past 12 m [facility], were you homeless or living in a retirement (including now)? No 12/08/2024 Personal Safety Answer Date Recorded Have you ever been in or are you currently in a harmful physical or emotional relationship or is someone making you feel afraid or unsafe? 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 Gender Identity Not on file Sexual Orientation Not on file Obstetrics History Last Filed Vital Signs Vital Sign Reading [...] 12/08/2024 1:25 PM CDT Plan of Treatment Health Maintenance Due Date Last Done Comments Hepatitis C Screening 1970 Hepatitis B Screening 1988 Zoster Vaccine (1 of 2) 2020 Regular Well Visit/Exam 18-64 01/24/2024 01/23/2023 Covid-19 Vaccine (3 - 2023-2 5 season) 2024 01/24/2021, 12/27/2020 Depression Screening 01/20/2025 01/21/2024, 11/14/2022, 06/28/2022 Influenza Vaccine (Season Ended) 2025 05/12/2022 Prostate Cancer Screening-PSA 05/22/2026, 04/11/2022 Colon Cancer Screening-Colonoscopy 10/27/2027 10/26/2024, 04/01/2023, 07/10/2022 Pneumococcal vaccine <65 (1 of 2 - PCV) 12/31/2027 Postponed from 12/10 (Provider's clinical decision) DTaP/Tdap/Td Vaccine (2 - Td or Tdap) 05/06/2030 05/06/2020 Medical Devices Implanted Type Area 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 Device Identifier Shelf Expiration Date Model / Serial / Lot Plate Left: Leg Description:LEFT LEG [employer] [id number] Od6 Fr L28 Cm L145 Cm Radiopaque; Positioner; Filiform Flexible T - [id number] Implanted:Qty: 1 on 12/28/2024 by Juan C Goodrich MD at [facility] Right: Ureter Cycle [employer] [id number] 08/25/2027 [id number] / / [id number] Procedures Procedure Name Priority Date/Time Associated Diagnosis Comments FL RETRO PYELO (IN OR) IP Routine 12/28/2024 3:12 PM CDT ND AN PROCEDURE PLACEHOLDER Routine 12/28/2024 2:20 PM CDT ND AN ELECTIVE SUPRAGLOTTIC AIRWAY Routine 12/28/2024 2:20 [...] (In Or) (12/28/2024 3:12 PM CDT) Narrative [id number] - 12/28/2024 3:13 PM CDT The images from this study are not interpreted by Radiology. Please refer to the physician's procedure / OR operative note. Juan C Goodrich MD IMG FLUOROSCOPY PROCEDURES Final Result [id number] * ND AN ELECTIVE SUPRAGLOTTIC AIRWAY, ND AN PROCEDURE PLACEHOLDER (12/28/2024 2:20 PM CDT) Narrative Imani Hinds CRNA - 12/28/2024 2:20 PM CDT Imani Hinds CRNA 12/28/2024 2:21 PM Airway Patient location: OR Urgency: elective Indications for airway management: anesthesia Difficult airway: no Staff: Supervising provider: Lucas Melédnez DO Placed by: CANVASSING MANAGER: Imani Hinds CRNA Emergent airway documentation: Risks and benefits discussed: yes Consent obtained: yes Airway prep: Preoxygenated: yes Patient position: sniffing MILS maintained throughout: yes Mask difficulty assessment: 0 - not attempted Spontaneous ventilation during airway: absent Sedation level during airway: deep Final airway details: Final airway type: supraglottic airway Final supraglottic airway: Duson SGA size: 5 Number of attempts: 1 us Lucas Meléndez DO ANESTHESIA ORDERABLES Final R esult * Urine culture Urine, bladder (12/11/2024 1:00 PM CDT) Report Final Report: Less than 100,000 colonies/mL (clinically insignificant growth based on current clinical standards) Comment:Testing performed by : [facility], [address] [place]., [address] Organism (CLINICALLY INSIGNIFICANT GR[facility]TH [facility] Urine, bladder 12/11/2024 1: 00 PM CDT 12/11/2024 7:52 PM CDT Narrative SILVINA - 12/12/2024 9:41 PM CDT Testing performed by [facility] Microbiology Laboratory ([phone]) Juan C Goodrich MD LAB MICROBIOLOGY - GENERAL ORDER YAKELIN Final Result [facility] [address] [facility] [facility] Department [place] [address] * eGFR (12/09/2024 2:14 AM [...] 12/09/2024 2:57 AM CDT us Aida Barrett ASSISTANT TO THE CEO LAB BLOOD ORDERABLES Final R esult [facility] [address] [facility] Department [place] [address] * Differential, auto (12/09/2024 2:14 AM CDT) Pathologist [facility] Neutrophil abs 2.89 1.50 - 6.50 K/cumm Imm gran abs 0.03 0.00 - 0.10 K/cumm [facility] Lymphocyte abs 2.09 0.80 - 3.30 K/cumm [facility] Monocyte abs 0.66 0.20 - 0.80 K/cumm [facility] Eosinophil abs 0.11 0.00 - 0.50 K/cumm [facility] Basophil abs 0.05 0.00 - 0.10 K/cumm [facility] Neutrophil pct 49.6 % [facility] Comment: Interpretive Data Percent cell count reference ranges are not reported, since discordance with absolute values may lead to misinterpretation of CBC data. Current Interpretive Data was last revised on 2017. Imm gran pct 0.5 % [facility] Comment: Interpretive Data Percent cell count reference ranges are not reported, since discordance with absolute values may lead to misinterpretation of CBC data. Current Interpretive Data was last revised on 2017. Lymphocyte pct 35.8 % [facility] Comment: Interpretive Data Percent cell count reference ranges are not reported, since discordance with absolute values may lead to misinterpretation of CBC data. Current Interpretive Data was last revised on 2017. Monocyte pct 11.3 % [facility] Comment: Interpretive Data Percent cell count reference ranges are not reported, since discordance with absolute values may lead to misinterpretation of CBC data. Current Interpretive Data was last revised on 2017. Eosinophil pct 1.9 % [facility] Comment: Interpretive Data Percent cell count reference ranges are not reported, since discordance with absolute values may lead to misinterpretation of CBC data. Current Interpretive Data was last revised on 2017. Basophil pct 0.9 % [facility] Comment: Interpretive Data Percent cell count reference ranges are not reported, since discordance with absolute values may lead to misinterpretation of CBC data. Current Interpretive Data was last revised on 2017. Blood 12/09/2024 2:14 AM CDT 12/09/2024 2:58 AM CDT Aida Barrett ASSISTANT TO THE CEO LAB BLOOD ORDERABLES Final R esult Performing Organization Address [facility] Co de Phone Number SILVINA [address] [place] [address] * (ABNORMAL) CBC with auto differential (12/09/2024 2:14 AM CDT) WBC 5.83 3.80 - 9.90 K/cumm Hgb 16.6 13.0 - 17.5 g/dL [facility] Hct 48.0 38.9 - 50.3 % [facility] Plt 133(L) 150 - 400 K/cumm [facility] MPV 11.5 9.1 - 12.3 fL [facility] RBC 5.11 4.30 - 5.80 M/cumm [facility] MCV 93.9 81.3 - 96.4 fL [facility] MCH 32.5 27.1 - 33.3 pg [facility] MCHC 34.6 32.3 - 35.7 g/dL [facility] RDW CV 13.2 11.1 - 14.9 % [facility] RDW SD 45.4 35.7 - 48.1 fL [facility] NRBC abs 0.00 0.00 - 0.01 K/cumm [facility] Blood 12/09/2024 2:14 AM CDT 12/09/2024 2:58 AM CDT Aida Barrett ASSISTANT TO THE CEO LAB BLOOD ORDERABLES Final R esult Performing Organization Address [facility] Co de Phone Number SILVINA [address] [place] [address] * Phosphorus (12/09/2024 2:14 AM CDT) [facility] Phosphorus, pl 3.0 2.3 - 4.5 mg/dL Blood 12/09/2024 2:14 AM CDT 12/09/2024 2:57 AM CDT Aida Barrett ASSISTANT TO THE CEO LAB BLOOD ORDERABLES Final [facility] Performing Organization Address [facility] Co de Phone Number [address] [address] * Magnesium (12/09/2024 2:14 AM CDT) [facility] Magnesium 2.0 1.4 - 2.5 mg/dL Blood 12/09/2024 2:14 AM CDT 12/09/2024 2:57 AM CDT Aida Barrett ASSISTANT TO THE CEO LAB BLOOD ORDERABLES Final [facility] Performing Organization Address [facility] de Phone Number [address] [address] * (ABNORMAL) Comprehensive metabolic panel (12/09/2024 2:14 AM CDT) [facility] Sodium 136 135 - 145 mmol/L Potassium, pl 3.7 3.3 - 4.9 mmol/L [facility] Comment:Hemolyzed; Potassium value may be falsely elevated by as much as 1.0 mmol/L. Suggest redraw and reanalysis. Chloride 103 97 - 110 mmol/L [facility] CO2 21(L) 22 - 32 mmol/L [facility] Anion gap 12 2 - 15 mmol/L [facility] BUN 12 6 - 25 mg/dL [facility] Creatinine 1.13 0.80 - 1.30 mg/dL [facility] Glucose 99 70 - 199 mg/dL [facility] Comment: Interpretive Data Fasting glucose [...] 2022. Calcium 9.0 8.5 - 10.3 mg/dL [facility] Bilirubin, total 0.5 0.1 - 1.2 mg/dL [facility] Protein, pl 6.0(L) 6.5 - 8.5 g/dL [facility] Albumin 3.8 3.5 - 5.0 g/dL [facility] Alk phos 49 40 - 130 Units/L [facility] ALT 12 7 - 55 Units/L [facility] AST See Comment 10 - 50 [facility] Comment:Credited; Hemolyzed Specimen Blood 12/09/2024 2:14 AM CDT 12/09/2024 2:57 AM CDT Aida Barrett ASSISTANT TO THE CEO LAB BLOOD ORDERABLES Final R esult [facility] [address] [facility] Department of Laboratories [place], [place] [id number] * (ABNORMAL) Drugs of Abuse Screen, Urine without Confirmation (12/08/2024 5:28 PM CDT) Pathologist [facility] Amphetamine, ur Not Detected CutOff 500ng/mL Comment: Interpretive Data - Amphetamines: Samples containing greater than 500 ng/mL d-methamphetamine or other cross-reacting amphetamine compounds are reported as positive. Amphetamine immunoassays are subject to significant false positive rates due to cross-reactivity of non-amphetamine drugs. Confirmatory testing required for definitive results. Current Interpretive Data was last reviewed 2023. Barbiturates, ur Not Detected CutOff 200ng/mL [facility] Comment: Interpretive Data - Barbiturates: Samples containing greater than 200 ng/mL secobarbital or other cross-reacting barbiturate compounds are reported as positive. False positive and false negative results are possible. Confirmatory testing required for definitive results. Current Interpretive Data was last reviewed 2023. Benzodiazepines, ur Screen Positive, presumptive (A) CutOff 100ng/mL [facility] Comment: Interpretive Data - Benzodiazepines: Samples containing greater than 100 ng/mL nordiazepam or other cross-reacting compounds are reported as positive. False positive and false negative results are possible. Confirmatory testing required for definitive results. Current Interpretive Data was last reviewed 2023. Cannabinoids, ur Screen Positive, presumptive (A) CutOff 50 ng/mL [facility] Comment: Interpretive Data - Cannabinoids: Samples containing greater than 50 ng/mL delta-9 THC -COOH or other cross- reacting compounds are reported as positive. False positive and false negative results are possible. Confirmatory testing required for definitive results. Current Interpretive Data was last reviewed 2023. Cocaine, ur Not Detected CutOff 150ng/mL [facility] Comment: Interpretive Data - Cocaine: Samples containing greater than 150 ng/mL benzoylecgonine or other cross- reacting compounds are reported as positive. False positive and false negative results are possible. Confirmatory testing required for definitive results. Current Interpretive Data was last reviewed 2023. Fentanyl, Ur Not Detected CutOff 5 ng/mL [facility] Comment: Interpretive Data - Fentanyl: Samples containing greater than 5 ng/mL norfentanyl, fentanyl, or other cross-reacting fentanyl compounds are reported as positive. False positive and false negative results are possible. Confirmatory testing required for definitive results. Current Interpretive Data was last reviewed 2023. Methadone, ur Not Detected CutOff 300ng/mL [facility] Comment: Interpretive Data - Methadone: Samples containing greater than 300 ng/mL d,l-methadone or other cross-reacting compounds are reported as positive. False positive and false negative results are possible. Confirmatory testing required for definitive results. Current Interpretive Data was last reviewed 2023. Opiates, ur Not Detected CutOff 300ng/mL [facility] Comment: Interpretive Data - Opiates: Samples containing greater than 300 ng/mL morphine or other cross-reacting compounds are reported as positive. False positive and false negative results are possible. Confirmatory testing required for definitive results. Current Interpretive Data was last reviewed 2023. Oxycodone, ur Not Detected CutOff 100ng/mL [facility] Comment: Interpretive Data - Oxycodone: Samples containing [...] PM CDT 12/08/2024 5:35 PM CDT Narrative SILVINA - 12/08/2024 5:59 PM CDT Drug of Abuse screening is performed by immunoassay for medical purposes only. This is not to be used for Pain Management purposes. us Aida Barrett NP LAB URINE ORDERABLES Final R esult [facility] [address] [facility] Department [place] [address] * XR Chest 1 View (12/08/2024 4:02 [...] Steve Jean M.D. RW T: Report ID: [id number] Reading Location: [id number] Procedure Note Steve Jean MD - 12/08/2024 [...] Steve Jean M.D. RW T: Report ID: [id number] Reading Location: [id number] us Aida Barrett NP IMG XR PROCEDURES Final Resu lt * eGFR (12/08/2024 8:10 AM CDT) eGFR 66 >=60 mL/min/1. 73 m2 Comment: [...] DUFFY LAB BLOOD ORDERABLES Final Resu lt [place] [address] [facility] Department [place] [address] * Differential, auto (12/08/2024 8:10 AM CDT) Neutrophil abs 1.66 1.50 - 6.50 K/cumm Imm gran abs 0.02 0.00 - 0.10 K/cumm [facility] Lymphocyte abs 1.25 0.80 - 3.30 K/cumm [facility] Monocyte abs 0.48 0.20 - 0.80 K/cumm [facility] Eosinophil abs 0.05 0.00 - 0.50 K/cumm [facility] Basophil abs 0.04 0.00 - 0.10 K/cumm [facility] Neutrophil pct 47.5 % [facility] Comment: Interpretive Data Percent cell count reference ranges are not reported, since discordance with absolute values may lead to misinterpretation of CBC data. Current Interpretive Data was last revised on 2017. Imm gran pct 0.6 % [facility] Comment: Interpretive Data Percent cell count reference ranges are not reported, since discordance with absolute values may lead to misinterpretation of CBC data. Current Interpretive Data was last revised on 2017. Lymphocyte pct 35.7 % [facility] Comment: Interpretive Data Percent cell count reference ranges are not reported, since discordance with absolute values may lead to misinterpretation of CBC data. Current Interpretive Data was last revised on 2017. Monocyte pct 13.7 % [facility] Comment: Interpretive Data Percent cell count reference ranges are not reported, since discordance with absolute values may lead to misinterpretation of CBC data. Current Interpretive Data was last revised on 2017. Eosinophil pct 1.4 % [facility] Comment: Interpretive Data Percent cell count reference ranges are not reported, since discordance with absolute values may lead to misinterpretation of CBC data. Current Interpretive Data was last revised on 2017. Basophil pct 1.1 % [facility] Comment: Interpretive Data Percent cell count reference ranges are not reported, since discordance with absolute values may lead to misinterpretation of CBC data. Current Interpretive Data was last revised on 2017. Blood 12/08/2024 8:10 AM CDT 12/08/2024 8:13 AM CDT us Rehab Carlos DUFFY LAB BLOOD ORDERABLES Final Resu lt [facility] [address] [facility] Department [place] [address] * (ABNORMAL) CBC with auto differential (12/08/2024 8:10 AM CDT) WBC 3.50(L) 3.80 - 9.90 K/cumm Hgb 16.3 13.0 - 17.5 g/dL [facility] Hct 46.8 38.9 - 50.3 % [facility] Plt 140(L) 150 - 400 K/cumm [facility] MPV 10.6 9.1 - 12.3 fL [facility] RBC 4.95 4.30 - 5.80 M/cumm [facility] MCV 94.5 81.3 - 96.4 fL [facility] MCH 32.9 27.1 - 33.3 pg [facility] MCHC 34.8 32.3 - 35.7 g/dL [facility] RDW CV 13.3 11.1 - 14.9 % [facility] RDW SD 46.1 35.7 - 48.1 fL [facility] NRBC abs 0.00 0.00 - 0.01 K/cumm [facility] Blood 12/08/2024 8:10 AM CDT 12/08/2024 8:13 AM CDT Maki Gonzalez MD LAB BLOOD ORDERABLES Final Resu lt Performing Organization Address [facility] de Phone Number [address] [place] [address] * (ABNORMAL) Phosphorus (12/08/2024 8:10 AM CDT) Phosphorus, pl 2.2(L) 2.3 - 4.5 mg/dL Blood 12/08/2024 8:10 AM CDT 12/08/2024 8:13 AM CDT Jimbo Slaughter MD LAB BLOOD ORDERABLES Final Result Performing Organization Address [facility] de Phone Number [address] [address] * Magnesium (12/08/2024 8:10 AM CDT) Pathologist [facility] Magnesium 1.8 1.4 - 2.5 mg/dL Blood 12/08/2024 8:10 AM CDT 12/08/2024 8:13 AM CDT Jimbo Slaughter MD LAB BLOOD ORDERABLES Final Result Performing Organization Address [facility] de Phone Number [address] [address] * (ABNORMAL) Ethanol (12/08/2024 8:10 AM CDT) Ethanol 102(H) <=10 mg/dL Comment: Interpretive Data Legal limit of intoxication > or = 80 mg/dL Levels > or = 400 mg/dL are potentially TOXIC. Current interpretive data was last revised on 2018. Blood 12/08/2024 8:10 AM CDT 12/08/2024 8:13 AM CDT Sol LIANG LAB BLOOD ORDERABL ES Final Result [facility] [address] [facility] Department [place] [address] * (ABNORMAL) Comprehensive metabolic panel (12/08/2024 8:10 AM CDT) Sodium 141 135 - 145 mmol/L Potassium, pl 4.0 3.3 - 4.9 mmol/L [facility] Chloride 109 97 - 110 mmol/L [facility] CO2 22 22 - 32 mmol/L [facility] Anion gap 10 2 - 15 mmol/L [facility] BUN 13 6 - 25 mg/dL [facility] Creatinine 1.29 0.80 - 1.30 mg/dL [facility] Glucose 116 70 - 199 mg/dL [facility] Comment: Interpretive Data Fasting glucose [...] 2022. Calcium 8.9 8.5 - 10.3 mg/dL [facility] Bilirubin, total 0.2 0.1 - 1.2 mg/dL [facility] Protein, pl 6.1(L) 6.5 - 8.5 g/dL [facility] Albumin 3.9 3.5 - 5.0 g/dL [facility] Alk phos 54 40 - 130 Units/L [facility] ALT 14 7 - 55 Units/L [facility] AST 20 10 - 50 Units/L [facility] Blood 12/08/2024 8:10 AM CDT 12/08/2024 8:13 AM CDT [facility] Carlos DUFFY LAB BLOOD ORDERABLES Final Resu lt [facility] [address] [facility] Department [place] [address] * Surgical pathology (10/26/2024 9:44 AM CDT) Tissue specimen (specimen) (Polyp(s), colon/colorectal, esophageal, gastric) 10/26/2024 9:44 AM CDT Tissue specimen (specimen) (Polyp(s), colon/colorectal, esophageal, gastric) 10/26/2024 9:56 AM CDT Tissue specimen (specimen) (Polyp(s), colon/colorectal, esophageal, gastric) 10/26/2024 10:04 AM CDT Narrative PATHOLOGY [facility] - 10/28/2024 11:54 AM CDT [facility] Department of Pathology [address] [place] [address] Note to Patients: This report may contain [...] : 1970 (Age: 53) Gender: M Address: [address] [place] [address] Hospital #: [id number] Service: Surgery Location: Patient Type: [facility] OUTPATIENT Taken: 10/26/2024 Received: 10/26/2024 Accessioned: 10/26/2024 Reported: 10/28/2024 Physician(s): Kareem Polanco M.D. Edgar Fall M.D. Diagnosis: A. Cecum, polyps x2, biopsy [...] debris. Entirely submitted. Labeled C1. Jar [facility]. [facility]10/26/2024 13:46 JUANITA Mullins, PA ([facility]) Microscopic slide review and interpretation for this case was performed at [facility], Department of Surgical Pathology, [address] [facility], [place] [id number], [address] # [id number] us Kareem Polanco MD LAB PATHOLOGY ORDERABLES Final Result PATHOLOGY [facility] * Colonoscopy (10/26/2024 9:23 AM CDT) Anatomical Region Laterality Modality Other Narrative Procedure Note Kareem Polanco MD - 10/26/2024 9:23 AM CDT [facility] GI ENDOSCOPY Patient Name: Rey Arzate Procedure Date: 10/26/2024 9:23 AM Date of : 1970 Admit Type: Outpatient Age: 53 Gender: Male Attending MD: Kareem Polanco M.D. Room: [facility] ENDOSCOPY ROOM 05 Note Status: Finalized Procedure: [...] The scope was passed under direct vision.The [id number] was introduced through theanus and advanced to [...] discharge instructions were provided to thepatient. Kareem Polanco M.D. Kareem Polanco M.D. 10/26/2024 10:15:22 AM . Number of Addenda: 0 Note Initiated On: 10/26/2024 9:23 AM Recognized by the [employer] for promoting quality in endoscopy us Kareem Polanco MD ENDOSCOPY PROCEDURES Fin al Result * (ABNORMAL) POCT creatinine for contrast evaluation (10/18/2024 10:19 AM CDT) Creatinine POC 1.40(H) 0.80 - 1.30 mg/dL Comment:Testing performed by : [facility], [address] [place] [address], [place]., [address] Blood 10/18/2024 10:1 9 AM CDT 10/18/2024 10:19 AM CDT us Edgar Fall MD POINT OF CARE TEST ORDERABLES Final Result [facility] [address] [facility] Department [place] [address] * CT Abdomen W WO [...] Justin Victoria M.D. AM: AM Report ID: [id number] Reading Location: [place] [address] Procedure Note Justin Victoria MD - 10/22/2024 [...] Justin Victoria M.D. AM: AM Report ID: [id number] Reading Location: [place] [address] Juan C Goodrich MD [facility]ED[place] Final Result * PSA screen (05/22/2024 1:26 PM CDT) PSA 0.92 < OR = 4.00 ng/mL [facility] Comment: The total PSA value from this assay system is standardized against the WHO standard. The test result will be approximately 20% lower when compared to the equimolar-standardized total PSA ([place]o [place]). Comparison of serial PSA results should be interpreted with this fact in mind. This test was performed using the Siemens chemiluminescent method. Values obtained from different assay methods cannot be used interchangeably. PSA levels, regardless of value, should not be interpreted as absolute evidence of the presence or absence of disease. Blood 05/22/2024 1:26 PM CDT 05/22/2024 1:27 PM CDT Edgar Fall MD LAB BLOOD ORDERABLES Final Re sult [facility] [address] [place] [address] from Last 3 Months or Most Recently Relevant to Health Maintenance Insurance [facility] CHOICE PLUS [facility] HMO/PPO Address: [facility] [address] [place] [address] [facility] CHOICE PLUS [facility] HMO/PPO Address: [place] [id number] [place] [id number] Advance Directives For more information, please contact: [phone] * Full Code (Latest Code Status on File) Date Activated Date Inactivated Comments 12/08/2024 11:56 AM 12/09/2024 4:28 PM * Full Code Date Activated Date Inactivated Comments 01/15/2024 11:27 PM 01/18/2024 5:26 PM Care Teams Pilot Captain Relationship Specialty Start Date End Date Edgar Fall MD PCP - General Family Medicine 12/11/23
--- OUTSIDE RECORDS SUMMARY | 2025-01-01 02:06 | XMS_ITS | Clinical Summary ---
Author Organization [facility] Address [address] [facility] [address] [address] Phone Care Team Providers Care Fitness Manager Name Role Phone Edgar Fall MD Primary Care Provider [phone] Allergies No known active allergies Medications escitalopram oxalate (LEXAPRO) 10 mg tablet Take 10 mg by mouth daily. 2 Active ALPRAZolam (XANAX) 0.25 mg tablet Take 0.25 mg by mouth every 12 hours as needed for Anxiety. 2 Active fenofibrate (LOFIBRA) 160 mg Tablet Take 160 mg by mouth daily. 1 Active thiamine (VITAMIN B-1) 100 mg tablet Take 1 Tablet (100 mg) by mouth daily. 30 Tablet 4 Active multivitamin tx with iron and folic acid tablet 18-400 mg-mcg Tablet Take 1 Tablet by mouth daily. 30 Tablet 4 Active fluticasone propionate (FLONASE) 50 mcg/spray [place], Suspension nasal inhaler Administer 2 Sprays in each nostril daily. 16 Gram 4 Active chlordiazePOXID E (LIBRIUM) 10 mg capsuleIndicati ons:Alcohol dependence in remission (CMS/HCC) Take 1 Capsule (10 mg) by mouth 3 times daily as needed for Alcohol / Drug Withdrawal Symptoms (agitation/rest lessness). 10 Capsule 11/03/2023 2:03 PM CDT 4 Active cetirizine (ZyrTEC) 10 mg tablet Take 1 Tablet (10 mg) by mouth daily. 30 Tablet 4 Active naltrexone (DEPADE) 50 mg tablet Take 0.5 Tablets (25 mg) by mouth daily. 15 Tablet Active Active Problems Problem Noted Date Diagnosed Date Alcohol abuse with withdrawal 12/03/2023 Prediabetes 10/29/2023 Alcohol dependence in remission 10/28/2023 Overview (10/31/2023): Last Assessment & Plan: Could be better Currently sober Discussed Librium, Vivitrol injections, oral naltrexone, Antabuse Will trial naltrexone PO d/t insurance coverage limited for Vivitrol. Advised will not stop drinking but [facility]. Encourage to continue counseling/AA/sponsors F/u 6 weeks Bipolar disorder with depression 04/09/2023 History of colon polyps 02/18/2023 Varicose veins of left lower extremity with pain 10/05/2021 Obstructive sleep apnea 10/28/2019 Essential hypertension 04/03/2019 Depression 11/04/2017 Hypertriglyceridemia, essential 11/04/2017 Vitamin D deficiency 11/05/2016 Anxiety 10/25/2016 AFTAB (generalized anxiety disorder) 10/25/2016 Encounters Date Type Department Care Team Description 12/01/2024 External Device Data [facility]CTION Provider, Abstract 11/10/2024 External Device Data [facility] Provider, Abstract 10/28/2024 External Device Data [facility] Provider, Abstract 10/20/2024 External Device Data [facility] Provider, Abstract 10/20/2024 External Device Data [facility] Provider, Abstract from Last 3 Months Social History Tobacco Use Types Packs/Day Years Used Date Smoking Tobacco: Every Day Cigarettes Tobacco Cessation:Ready to Q uit: Not Asked; Counseling Given: Not Answered Feeling Safe Answer Date Recorded Are you in a relationship wi th someone who hurts you emotionally and/or physically? 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 Gender Identity Not on file Sexual Orientation Not on file Last Filed Vital Signs Vital Sign Reading Time Taken Comments Blood Pressure 103/70 12/05/2023 7:00 AM CDT Pulse 63 12/05/2023 7:00 AM CDT Temperature 36.4 C (97.5 F) 12/05/2023 7:00 AM CDT Respiratory Rate 16 12/05/2023 7:00 AM CDT Oxygen Saturation 97% 12/05/2023 7:00 AM CDT Inhaled Oxygen Concentration - - Weight 97.9 kg (215 lb 14.4 oz) 12/03/2023 5:33 PM CDT Height 182.9 cm (6') 12/03/2023 4:42 PM CDT Body Mass Index 29.28 12/03/2023 4:42 PM CDT Plan of Treatment Health Maintenance Due Date Last Done Comments HEPATITIS B VACCINES (1 of 3 - 19+ 3-dose series) 1989 FIT-DNA Q 3 years 12/11/2015 FIT/FOBT Q 1 year 12/11/2015 Flex Sig/CT Colonography Q 5 years 12/11/2015 ZOSTER VACCINE (1 of 2) 2020 INFLUENZA VACCINE (#1) 2024 DTAP/TDAP/TD VACCINES (2 - Td or Tdap) 05/06/2030 COLORECTAL SCREENING 04/01/2033 04/01/2023, 04/01/20 23 Colorectal Cancer Screening 04/01/2033 Insurance RX [employer] RX Member Subscriber Plan / Payer (Ef fective 2023-Present) Name:Rey Martin Relation to Subscriber:Not on file Name:Rey Martin Subscriber ID:Not on file Date of :1970 Payer ID:Not on file Group ID:[id number] Type:RX Commercial Address: [place] MEDICA[address] [facility] [id number] Advance Directives For more information, please contact: [phone] * Full Code (Latest Code Status on File) Date Activated Date Inactivated Comments 12/03/2023 11:55 PM 12/05/2023 3:43 PM * Default Full Code - Needs Discussion Date Activated Date Inactivated Comments 12/03/2023 4:46 PM 12/03/2023 11:55 PM * Full Code Date Activated Date Inactivated Comments 10/31/2023 1:54 PM 11/03/2023 4:22 PM Care Teams Fitness Manager Relationship Specialty Start Date End Date Edgar Fall MD PCP - General Family Practice 12/04/23
--- OUTSIDE RECORDS SUMMARY | 2025-01-01 02:06 | XMS_ITS | Encounter Summary ---
Author Organization [facility] Address [address] [place] [address] Phone Care Team Providers Care Care Specialist Name Role Phone Edgar Fall MD Primary Care Provider [phone] Encounter Details Date Type Department Care Team (Late st Contact Info) Description 04/30/2024 Telephone [facility]) [address] [facility] [address], [address] [place] [address] Art Guaman, OD [address] [facility] DEPT OPHTHALMOLOGY, [address] [place] [address] Social History Tobacco Use Types Packs/Day Years Used Date Smoking Tobacco: Former Cigarettes 0.3 39.4 S tarted: 1985 Smokeless Tobacco: Never [facility] Utilities Answer Date Recorded In the past 12 months has [place], gas, oil, or water [employer] threatened to shut off services in your home? No 01/16/2024 Social Connection and Isolation Panel [NHANES] A nswer Date Recorded In a typical week, how many times do you talk on the phone with family, friends, or neighbors? Three times a week 01/16/20 24 How often do you get togethe r with friends or relatives? Three times a week 01/16/2024 How often do you attend chur ch or bahai services? 1 to 4 times per year 01/16/2024 Do you belong to any clubs o r organizations such as jehovah's witness groups, unions, fraternal or athletic groups, or school groups? No 01/16/2024 How often do you attend meet ings of the clubs or organizations you belong to? Never 01/16/2024 Are you , , di vorced, , never , or living with a partner? 01/16/2024 AUDIT-C Answer Date Recorded Q1: How often do you have a drink containing alc ohol? 2-3 times a week 04/01/2023 Q2: How many drinks containi ng alcohol do you have on a typical day when you are drinking? 3 or 4 04/01/2023 Q3: How often do you have si x or more drinks on one occasion? Less than monthly 04/01/2023 Overall Financial Resource Strain (CARDIA) Answe r Date Recorded How hard is it for you to pa y for the very basics like food, housing, medical care, and heating? Not hard at all 01/16/2024 PHQ-2 Answer Date Recorded PHQ-2 Total Score (If total score is 3 or more points, staff should administer the PHQ-9) 0 01/21/2024 Hunger Vital Sign Answer Date Recorded Within the past 12 months, y ou worried that your food would run out before you got the money to buy more. Never true 01/16/20 24 Within the past 12 months, t he food you bought just didn't last and you didn't have money to get more. Never true 01/16/2024 PRAPARE - Transportation Answer Date Re corded In the past 12 months, has l ack of transportation kept you from medical appointments or from getting medications? No 01/2024 In the past 12 months, has l ack of transportation kept you from meetings, work, or from getting things needed for daily living? No 01/16/2024 Housing Stability Vital Sign Answer Chuck e Recorded In the last 12 months, was t here a time when you were not able to pay the mortgage or rent on time? No 01/16/2024 In the past 12 months, how m any times have you moved where you were living? 0 01/16/2024 At any time in the past 12 m [facility], were you homeless or living in a care home (including now)? No 01/16/2024 Personal Safety Answer Date Recorded Have you ever been in or are you currently in a harmful physical or emotional relationship or is someone making you feel afraid or unsafe? 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
--- NOTE | 2025-01-01 02:29 | ED_ITS ---
HPI - Abdominal Pain General Chief Complaint: Abdominal Pain Stated Complaint: severe flank pain Time Seen by Provider: 01/01/25 02:14 Source: patient and family Mode of arrival: ambulatory Limitations: no limitations History of Present Illness HPI narrative: Patient presents with right flank pain radiating to groin. He recently had a kidney stone and had a ureteral stent placed Saturday outpatient through [facility] that had an attached string through the urethra that he had been instructed to pull this evening. He did so but then started to have severe pain and nausea. He is having hematuria. He had been prescribed [place] as well as ibuprofen. He took the [place] at first but now just ibuprofen. He denies any fevers or chills. His urologist was Dr Juan C Goodrich. No abdominal pain. Related Data Home Medications ?Medication ?Instructions ?Recorded ?Confirmed ?Last Taken ?Type chlordiazepoxide HCl 10 mg capsule mg 08/10/23 Unknown History fenofibrate 160 mg tablet mg 08/10/23 Unknown History Allergies Allergy/AdvReac Type Severity Reaction Status Date / Time No Known Allergies Allergy Mild Unverified 03/01/19 07:47 PMFSH Surgical History Surgical History (Updated 01/01/25 @ 17:58 by Ivanna Deluna MD) History of ureter stent placed 12/28 [facility] outpaitent Dr Juan C Goodrich, self-removal as instructed 12/31/24 Social History Social History (Updated 01/01/25 @ 17:59 by Ivanna Deluna MD) Living arrangements: with family Exam 2 Narrative: GENERAL: Well-appearing, well-nourished, in moderate acute distress, restless and groaning. HEAD: Normocephalic, atraumatic. EYES: Non injected, non icteric ENT: Nares clear, no rhinorrhea or epistaxis. Gross auditory acuity intact. NECK: Supple. No meningismus. CHEST: Speaking in full sentences. No respiratory distress. HEART: Regular rate and rhythm. . ABDOMEN: Soft, nondistended. No rigidity or guarding. Not peritoneal EXTREMITIES: Normal range of motion. No lower extremity edema. SKIN: Warm, dry, no rash. NEURO: No focal deficits. Alert and oriented. Answering questions. Following commands. Normal speech without aphasia or dysarthria. PSYCH: Normal mood and affect. Course Vital Signs Vital signs: Vital Signs Temperature 96.2 F L 05/23/25 02:07 Pulse Rate 49 L 01/01/25 02:07 Respiratory Rate 15 01/01/25 02:07 Blood Pressure 102/69 01/01/25 02:07 Pulse Oximetry 100 01/01/25 02:07 Oxygen Delivery Room Air 01/01/25 02:07 Temperature 97.8 F 01/01/25 07:20 Pulse Rate 67 01/01/25 07:20 Respiratory Rate 16 01/01/25 07:20 Blood Pressure 137/76 01/01/25 07:20 Pulse Oximetry 98 01/01/25 07:20 Oxygen Delivery Room Air 01/01/25 02:07 MDM - Abdominal Pain MDM Narrative Medical decision making narrative: Patient presents with right flank pain radiating to groin. Recent ureteral stent placed which he was advised to pull the string that remained out of his urethra this evening. Pain after he did so. In the emergency department he is afebrile with signs notable for bradycardia. Creatinine 1.51 with no prior for comparison. Will presume DOROTA at this point in give 1 L IV fluids. Patient initially given 0.5 mg Dilaudid. This works for a while but does wear off while awaiting CT imaging results. While on the phone with Dr Valadez urologmyriam for a different patient, I did inquire about this patient. He confirms that patient's urologist Juan C Goodrich is not with their practice but rather a [facility] urologist. Notes that pain after self removal of these stents is not uncommon especially because there can be small residual stone(s) present. He notes consultation of a urologist would be indicated if there appears to be obstruction. CT as below. Patient's pain is better controlled. We discussed repeat expulsion therapy and indications/return precautions that would warrant returning to the emergency department but also the importance of following up with Urology, either his initial 1 no or the referral listed in discharge instructions. He and verifies understanding. Stable for discharge. Lab Data Attestation: I reviewed the patient's lab results. Lab results narrative: CBC without leukocytosis, anemia, thrombocytopenia. Abnormalities on differential 01/01/25 02:24 01/01/25 02:24 Labs: Lab Results 01/01/25 Range/Units 02:24 WBC 6.6 (4.5-10.0) K/mm3 RBC 4.97 (4.6-6.20) M/mm3 Hgb 16.2 (14.0-18.0) g/dL Hct 48.1 (42.0-52.0) % MCV 96.8 (80-100) fl MCH 32.6 (26-34) pg MCHC 33.7 (32-36) g/dl RDW 14.6 H (11.5-14.5) % Plt Count 175 (150-375) k/mm3 MPV 11.2 H (7.4-10.4) fl Immature Gran % (Auto) 0.8 H (0-0.5) % Neut % (Auto) 42.1 L (45.5-73.1) % Lymph % (Auto) 42.9 (18.3-44.2) % [place] % (Auto) 12.5 H (2.6-8.5) % Eos % (Auto) 0.9 (0-4.4) % Baso % (Auto) 0.8 (0.2-1.2) % Lymph # (Auto) 2.85 (0.9-3.2) K/mm3 [place] # (Auto) 0.8 H (0.1-0.6) K/mm3 Eos # (Auto) 0.1 (0-0.3) K/mm3 Baso # (Auto) 0.1 (0.0-0.1) K/mm3 Abs Immat Gran (auto) 0.05 H (0.00-0.031) K/mm3 Absolute Neuts (auto) 2.8 (1.3-6.7) K/mm3 Absolute Nucleated RBC 0.000 (0.0-0.012) K/mm3 Nucleated RBC % 0.0 (0.0-0.2) % Sodium 144 (137-145) mmol/L Potassium 4.1 (3.4-5.0) mmol/L Chloride 107 (98-107) mmol/L Carbon Dioxide 30 (22-30) mmol/L Anion Gap 7 (4-12) mmol/L BUN 18 (9-20) mg/dL Creatinine 1.51 H (0.7-1.3) mg/dL Estim Creat Clear Calc 61 ml/min Estimated GFR 48 L (59 - ) Glucose 140 H (65-110) mg/dL Calcium 9.1 (8.4-10.2) mg/dL Total Bilirubin 0.5 (0.2-1.3) mg/dL AST 27 (17-59) U/L ALT 16 (6-50) U/L Alkaline Phosphatase 52 (38-126) U/L Total Protein 7.0 (6.3-8.2) g/dL Albumin 4.4 (3.5-5.1) g/dL Urine Color Dark lashay (Yellow) Urine Appearance Turbid H (Clear) Urine pH 5.5 (5.0-9.0) Ur Specific [place] 1.025 (1.001-1.035) Urine Protein 3+ H (Negative) mg/dL Urine Glucose (UA) Negative (Negative) mg/dL Urine Ketones Negative (Negative) mg/dL Ur Blood (Man) 3+ H (Negative) Urine Nitrate Negative (Negative) Urine Bilirubin 1+ H (Negative) Urine Urobilinogen 1.0 (<2.0) mg/dL Leukocyte Esterase Rfl 1+ H (Negative) LILI/UL Urine RBC >100 H (0-2) /hpf Urine WBC 6-10 H (0-3) /hpf Ur Squamous Epith Cells None seen (Few) /hpf Urine Bacteria None seen /hpf Urine Casts 0-2 Imaging Data Radiologist's impression: ITS Impressions Abdomen/Pelvis CT 01/01/25 06:22 Impression: Probable 3 separate small right ureteral stones, largest measuring 2 mm, as detailed above. Mild right hydroureteronephrosis. No ureteral stent present on this exam. Discharge Plan Discharge Clinical Impression: Acute right flank pain, [place] (acute kidney injury), Right ureteral stone Patient Disposition: Home Condition: Stable Instructions: Antibiotic Form, Acute Kidney Injury (DC), How to Strain Your Urine (ED), Flank Pain (ED), Ureteral Stones (ED) Additional Instructions: As we discussed, you do have some small ureteral stones which should pass spontaneously with the assistance of expulsion therapy. Use the prescribed medications. Follow-up for your urologist or the name of 1 is listed below. Return to the emergency department any new or worsening symptoms or unmanaged symptoms such as intractable nausea, vomiting, pain, or you develop a fever with temperature greater than 100.4? F Patient Language: Gambian Prescriptions: New ketorolac 10 mg tablet 10 mg PO Q8H PRN (Reason: pain) Qty: 14 0RF Rx Instructions: maximum total duration of 5 days from all oral, intranasal, or parenteral formulations tamsulosin 0.4 mg capsule 0.4 mg PO DAILY Qty: 12 0RF ondansetron 4 mg tablet,disintegrating 4 mg PO Q8H PRN (Reason: nausea and vomiting) Qty: 7 0RF No Action chlordiazepoxide HCl 10 mg capsule fenofibrate 160 mg tablet prednisone 20 mg tablet 40 mg PO DAILY 5 Days Qty: 10 0RF cefdinir 300 mg capsule 300 mg PO Q12H 10 Days Qty: 20 0RF Follow-up/Referrals: PHYSICIAN NOT ON STAFF,NONSTAFF [Primary Care Provider] - Chet Rodrigues MD [Physician] - Stand Alone Forms: Work/School Release IP Time of Disposition: 07:03
[2025-01-01 02:41] LABS: Basophils Absolute Auto 0.1 K/mm3 (0.0-0.1); Basophils Percent Auto 0.8 % (0.2-1.2); Eosinophils Absolute Auto 0.1 K/mm3 (0-0.3); Eosinophils Percent Auto 0.9 % (0-4.4); Hematocrit 48.1 % (42.0-52.0); Hemoglobin 16.2 g/dL (14.0-18.0); Immature Granulocyte Absolute 0.05 K/mm3 (0.00-0.031); Immature Granulocyte Percent A 0.8 % (0-0.5); Lymphocytes Absolute Auto 2.85 K/mm3 (0.9-3.2); Lymphocytes Percent Auto 42.9 % (18.3-44.2); Mean Corpuscular HGB Conc 33.7 g/dl (32-36); Mean Corpuscular Hemoglobin 32.6 pg (26-34); Mean Corpuscular Volume 96.8 fl (80-100); Mean Platelet Volume 11.2 fl (7.4-10.4); Monocytes Absolute Auto 0.8 K/mm3 (0.1-0.6); Monocytes Percent Auto 12.5 % (2.6-8.5); Neutrophils Absolute Auto 2.8 K/mm3 (1.3-6.7); Neutrophils Percent Auto 42.1 % (45.5-73.1); Platelet Count Result 175 k/mm3 (150-375); Red Blood Count 4.97 M/mm3 (4.6-6.20); Red Cell Distribution Width 14.6 % (11.5-14.5); White Blood Count 6.6 K/mm3 (4.5-10.0)
[2025-01-01] MEDS: HYDROmorphone HCL INJ (*CRX) 2 MG/ML VIAL 0.5 MG IV PUSH (02:42)
[2025-01-01 02:51] LABS: Alanine Aminotransferase 16 U/L (6-50); Albumin Level 4.4 g/dL (3.5-5.1); Alkaline Phosphatase 52 U/L (38-126); Anion Gap 7 mmol/L (4-12); Aspartate Amino Transferase 27 U/L (17-59); Bilirubin,Total 0.5 mg/dL (0.2-1.3); Blood Urea Nitrogen 18 mg/dL (9-20); Calcium 9.1 mg/dL (8.4-10.2); Carbon Dioxide 30 mmol/L (22-30); Chloride 107 mmol/L (98-107); Estimated CRCL calculation 61 ml/min; Estimated Glomerular Filt Rate 48; Glucose 140 mg/dL (65-110); Potassium 4.1 mmol/L (3.4-5.0); Sodium 144 mmol/L (137-145)
--- OUTSIDE RECORDS SUMMARY | 2025-01-01 02:54 | XMS_ITS | Clinical Summary ---
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 Gender Identity Not on file Sexual Orientation [...] Type:RX Commercial Address: [place] [employer] [facility] [id number] Advance Directives For more information, please contact: [phone] * Full Code (Latest Code Status on File) Date Activated Date Inactivated Comments 12/03/2023 11:55 PM 12/05/2023 3:43 PM * Default Full Code - Needs Discussion Date Activated Date Inactivated Comments 12/03/2023 4:46 PM 12/03/2023 11:55 PM * Full Code Date Activated Date Inactivated Comments 10/31/2023 1:54 PM 11/03/2023 4:22 PM Care Teams Chief Of Planning Relationship Specialty Start Date End Date Edgar Fall MD PCP - General Family Practice 12/04/23
--- OUTSIDE RECORDS SUMMARY | 2025-01-01 02:54 | XMS_ITS | Encounter Summary ---
Author Organization [facility] Address [address] [place] [address] Phone Care Team Providers Care Materials And Processes Manager Name Role Phone Edgar Fall MD Primary Care Provider [phone] Encounter Details Date Type Department Care Team (Late st Contact Info) Description 04/30/2024 Telephone [facility]) [address], [address] [place] [address] Art Guaman, OD [address] [facility] [address] DEPT OPHTHALMOLOGY, [address] [place] [address] Social History Tobacco Use Types Packs/Day Years Used Date Smoking Tobacco: Former Cigarettes 0.3 39.4 S tarted: 1985 Smokeless Tobacco: Never [facility] Utilities Answer Date Recorded In the past 12 months has [employer], gas, oil, or water [employer] threatened to shut off services in your [...] often do you attend chur ch or amish services? 1 to 4 times per year 01/16/2024 Do you belong to any clubs o r organizations such as jewish groups, unions, fraternal or athletic groups, or [...] any time in the past 12 m [facility], were you homeless or living in a correction (including now)? No 01/16/2024 Personal Safety Answer Date Recorded Have you ever been in or are you currently in a harmful physical or emotional relationship or is someone making you feel afraid or unsafe? 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
--- OUTSIDE RECORDS SUMMARY | 2025-01-01 02:54 | XMS_ITS | Referral Summary ---
Author Organization [facility] Address [address] [place] [address] Care Team Providers Care Risk Manager Name Role Phone Edgar Fall MD Primary Care Provider [phone] Encounters Date Type Department Care Team Description 12/28/2024 1:15 PM CDT - 12/28/2024 2:55 PM CDT Surgery [facility] OR [address] [place] [phone] Juan C Goodrich MD RIGHT URETEROSCOPY WITH HOLMIUM LASER LITHOTRIPSY, RETROGRADE PYELOGRAM, URETERAL STENT PLACEMENT 12/28/2024 2:02 PM CDT Anesthesia Event [facility] [place] [address] [place] [phone] Wm Reeves MD Taylor-White, Carlotta A. CLOTHING PATTERNMAKER 12/28/2024 11:18 AM CDT - 12/28/2024 6:23 PM CDT Hospital Encounter [facility] [place] [address] [place] [address] Juan C Goodrich MD Kidney stone Discharge Disposition: Discharge to home or self care 12/21/2024 Telephone [facility] Surgery [address] [place] [address] Kaylah Marcelino RMA 12/11/2024 12:55 PM CDT Lab [facility] Lab [address] [place] [address] Kidney stone 12/08/2024 10:01 AM CDT - 12/09/2024 12:10 PM CDT Hospital Encounter [facility] [address] [address] Maki Gonzalez MD Winston, Jared Todd, MD Alcohol withdrawal syndrome with complication (HCC) (Primary Dx) Discharge Disposition: Discharge to home or self care 12/07/2024 Telephone [facility] at [address] [phone] Edgar Fall MD Medical Question/Miscellaneo us 12/02/2024 Orders Only [facility] Surgery [address] [place] [address] [address] [place] [address] Juan C Goodrich MD Kidney stone (Primary Dx) 11/27/2024 Telephone [facility] Surgery [address] [place] [phone] Kaylah Marcelino RMA 11/06/2024 Telephone [facility] at [address] [phone] Edgar Fall MD [facility] 11/05/2024 9:00 AM CDT Office Visit [facility] at [address] [phone] Rosalind Mota PA AFTAB (generalized anxiety disorder) (Primary Dx); Hypertriglyceridemia , essential; Primary insomnia; Male hypogonadism; Prediabetes; Vitamin D deficiency; Cigarette nicotine dependence without complication; Obesity (BMI 30-39.9); Screening for prostate cancer 11/03/2024 3:20 PM CDT Telemedicine [facility] Surgery [address] [place] [address] [address] [place] [address] Juan C Goodrich MD Renal cyst (Primary Dx); Kidney stone 10/30/2024 Results Follow-Up [facility] [place] [address] Kareem Polanco MD Surgical pathology 10/26/2024 9:24 AM CDT Anesthesia Event [facility] GI Lab [address] [place] [address] Moriah Bearden MD Suguitan, Karen E., CRNA 10/26/2024 8:30 AM CDT - 10/26/2024 9:00 AM CDT Surgery [facility] GI Lab [address] [place] [address] Kareem Polanco MD COLON REMOVAL SNARE 10/26/2024 7:23 AM CDT - 10/26/2024 10:53 AM CDT Hospital Encounter [facility] GI Lab [address] [place] [address] Kareem Polanco MD Colon polyps Discharge Disposition: Discharge to home or self care 10/23/2024 Orders Only [facility] at [address] [place] [phone] Edgar Fall MD AFTAB (generalized anxiety disorder) 10/22/2024 Telephone [facility] at [address] [place] [phone] Edgar Fall MD Authorization/Certif ication 10/18/2024 9:55 AM CDT - 10/18/2024 11:59 PM CDT Hospital Encounter [address] [address] Renal cyst Discharge Disposition: Discharge to home [...] (07/20/2022): Added automatically from request for surgery [id number] Rhinitis medicamentosa 04/26/2022 Hypertrophy of both inferior [...] distance OU. Discussed [facility] [place] [facility] In House Encounter for screening colonoscopy 04/01/2024 11/05/2024 Colon polyp 05/16/2023 11/05/2024 Colon polyps 07/12/2022 04/09/2023 Overview (07/12/2022): Added automatically from request for surgery [id number] Deviated nasal septum 04/26/20222022 Screening for colon cancer 03/20/2022 0 04/09/2023 Overview (03/20/2022): Added automatically from request for surgery [id number] Abnormal fasting glucose 11/08/2017 Depression 11/04/2017 02/21/2023 [...] uit: Not Asked; Counseling Given: Not Answered [facility] Utilities Answer Date Recorded In the [...] often do you attend chur ch or hindu services? 1 to 4 times per year 12/08/2024 Do you belong to any clubs o r organizations such as scientology groups, unions, fraternal or athletic groups, or [...] any time in the past 12 m [facility], were you homeless or living in a fdc (including now)? No 12/08/2024 Personal Safety Answer Date Recorded Have you ever been in or are you currently in a harmful physical or emotional relationship or is someone making you feel afraid or unsafe? Denies 12/28/2024 Sex and Gender Information Value Date Recorded Sex Assigned at Not on file Legal Sex Male 12:02 PM KINDERGARTNER Gender Identity Not on file Sexual Orientation [...] on file Medical Devices Implanted Type Area Service Loss Control Consultant Device Identifier Shelf Expiration Date Model / Serial / Lot Plate Left: Leg Description:LEFT LEG [employer] [id number] Od6 Fr L28 Cm L145 Cm Radiopaque; Positioner; Filiform Flexible T - [id number] Implanted:Qty: 1 on 12/28/2024 by Juan C Goodrich MD at [facility] Right: Ureter [facility] [id number] 08/25/2027 [id number] / / [id number] Procedures Procedure Name Priority Date/Time Associated Diagnosis Comments FL RETRO PYELO (IN OR) IP Routine 12/28/2024 3:12 PM CDT W[place] AN PROCEDURE PLACEHOLDER Routine 12/28/2024 2:20 PM CDT WV AN ELECTIVE SUPRAGLOTTIC AIRWAY Routine 12/28/2024 2:20 [...] IMG FLUOROSCOPY PROCEDURES Final Result [id number] * WV AN ELECTIVE SUPRAGLOTTIC AIRWAY, [place] AN PROCEDURE PLACEHOLDER (12/28/2024 2:20 PM CDT) Narrative Imani Hinds CRNA - 12/28/2024 2:20 PM CDT Imani Hinds CRNA 12/28/2024 2:21 PM Airway Patient location: OR Urgency: elective Indications for airway management: anesthesia Difficult airway: no Staff: Supervising provider: Lucas Meléndez DO Placed by: DRIVER WHEELCHAIR: Imani Hinds CRNA Emergent airway documentation: Risks and benefits discussed: yes Consent obtained: yes Airway prep: Preoxygenated: yes Patient position: sniffing MILS maintained throughout: yes Mask difficulty assessment: 0 - not attempted Spontaneous ventilation during airway: absent Sedation level during airway: deep Final airway details: Final airway type: supraglottic airway Final supraglottic airway: [place] SGA size: 5 Number of attempts: 1 us Lucas Meléndez DO ANESTHESIA ORDERABLES Final R esult * Urine culture Urine, bladder (12/11/2024 1:00 PM CDT) Report Final Report: Less than 100,000 colonies/mL (clinically insignificant growth based on current clinical standards) Comment:Testing performed by : [facility], [address] [place] [address]., [id number] Organism (CLINICALLY INSIGNIFICANT GROWTH [facility] Urine, bladder 12/11/2024 1: 00 PM CDT 12/11/2024 7:52 PM CDT Narrative [facility] - 12/12/2024 9:41 PM CDT Testing performed by [facility] Microbiology Laboratory ([phone]) Juan C Goodrich MD LAB MICROBIOLOGY - GENERAL ORDER YAKELIN Final Result [facility] [address] [place] [address] * eGFR (12/09/2024 2:14 AM [...] NP LAB BLOOD ORDERABLES Final R esult [place] [id number] [facility] [place] [address] * Differential, auto (12/09/2024 2:14 AM CDT) Pathologist [facility] Neutrophil abs 2.89 1.50 - 6.50 K/cumm Imm gran abs 0.03 0.00 - 0.10 K/cumm [facility] Lymphocyte abs 2.09 0.80 - 3.30 K/cumm [facility] Monocyte abs 0.66 0.20 - 0.80 K/cumm [facility] Eosinophil abs 0.11 0.00 - 0.50 K/cumm [facility] Basophil abs 0.05 0.00 - 0.10 K/cumm [facility] Neutrophil pct 49.6 % [facility] Comment: Interpretive Data Percent cell count reference ranges are not reported, since discordance with absolute values may lead to misinterpretation of CBC data. Current Interpretive Data was last revised on 2017. Imm gran pct 0.5 % [facility] Comment: Interpretive Data Percent cell count reference ranges are not reported, since discordance with absolute values may lead to misinterpretation of CBC data. Current Interpretive Data was last revised on 2017. Lymphocyte pct 35.8 % [facility] Comment: Interpretive Data Percent cell count reference ranges are not reported, since discordance with absolute values may lead to misinterpretation of CBC data. Current Interpretive Data was last revised on 2017. Monocyte pct 11.3 % [facility] Comment: Interpretive Data Percent cell count reference ranges are not reported, since discordance with absolute values may lead to misinterpretation of CBC data. Current Interpretive Data was last revised on 2017. Eosinophil pct 1.9 % [facility] Comment: Interpretive Data Percent cell count reference ranges are not reported, since discordance with absolute values may lead to misinterpretation of CBC data. Current Interpretive Data was last revised on 2017. Basophil pct 0.9 % [facility] Comment: Interpretive Data Percent cell count reference ranges are not reported, since discordance with absolute values may lead to misinterpretation of CBC data. Current Interpretive Data was last revised on 2017. Blood 12/09/2024 2:14 AM CDT 12/09/2024 2:58 AM CDT us Aida Barrett CLOTHING PATTERNMAKER LAB BLOOD ORDERABLES Final R esult [facility] [address] [place] [address] * (ABNORMAL) CBC with auto differential (12/09/2024 2:14 AM CDT) WBC 5.83 3.80 - 9.90 K/cumm Hgb 16.6 13.0 - 17.5 g/dL [facility] Hct 48.0 38.9 - 50.3 % [facility] Plt 133(L) 150 - 400 K/cumm [facility] MPV 11.5 9.1 - 12.3 fL [facility] RBC 5.11 4.30 - 5.80 M/cumm [facility] MCV 93.9 81.3 - 96.4 fL [facility] MCH 32.5 27.1 - 33.3 pg [facility] MCHC 34.6 32.3 - 35.7 g/dL [facility] RDW CV 13.2 11.1 - 14.9 % [facility] RDW SD 45.4 35.7 - 48.1 fL [facility] NRBC abs 0.00 0.00 - 0.01 K/cumm [facility] Blood 12/09/2024 2:1 4 AM CDT 12/09/2024 2:58 AM CDT Aida Barrett CLOTHING PATTERNMAKER LAB BLOOD ORDERABLES Final R esult Performing Organization Address [facility] de Phone Number [address] [place] [address] * Phosphorus (12/09/2024 2:14 AM CDT) Pathologist [facility] Phosphorus, pl 3.0 2.3 - 4.5 mg/dL Blood 12/09/2024 2:14 AM CDT 12/09/2024 2:57 AM CDT Aida Barrett CLOTHING PATTERNMAKER LAB BLOOD ORDERABLES Final R esult Performing Organization Address [facility] de Phone Number [address] [place] [address] * Magnesium (12/09/2024 2:14 AM CDT) [facility] Magnesium 2.0 1.4 - 2.5 mg/dL Blood 12/09/2024 2:14 AM CDT 12/09/2024 2:57 AM CDT Aida Barrett CLOTHING PATTERNMAKER LAB BLOOD ORDERABLES Final R esult Performing Organization Address [facility] de Phone Number [address] [place] [address] * (ABNORMAL) Comprehensive metabolic panel (12/09/2024 2:14 AM CDT) Pathologist [facility] Sodium 136 135 - 145 mmol/L Potassium, pl 3.7 3.3 - 4.9 mmol/L [facility] Comment:Hemolyzed; Potassium value may be falsely elevated by as much as 1.0 mmol/L. Suggest redraw and reanalysis. Chloride 103 97 - 110 mmol/L [facility] CO2 21(L) 22 - 32 mmol/L [facility] Anion gap 12 2 - 15 mmol/L [facility] BUN 12 6 - 25 mg/dL [facility] Creatinine 1.13 0.80 - 1.30 mg/dL [facility] Glucose 99 70 - 199 mg/dL [facility] Comment: Interpretive Data Fasting glucose >/= [...] 2022. Calcium 9.0 8.5 - 10.3 mg/dL [facility] Bilirubin, total 0.5 0.1 - 1.2 mg/dL [facility] Protein, pl 6.0(L) 6.5 - 8.5 g/dL [facility] Albumin 3.8 3.5 - 5.0 g/dL [facility] Alk phos 49 40 - 130 Units/L [facility] ALT 12 7 - 55 Units/L [facility] AST See Comment 10 - 50 [facility] Comment:Credited; Hemolyzed Specimen Blood 12/09/2024 2:14 AM CDT 12/09/2024 2:57 AM CDT us Aida Barrett NP LAB BLOOD ORDERABLES Final R esult [facility] [address] [place] [address] * (ABNORMAL) Drugs of Abuse Screen, Urine without Confirmation (12/08/2024 5:28 PM CDT) [facility] Amphetamine, ur Not Detected CutOff 500ng/mL Comment: Interpretive Data - Amphetamines: Samples containing greater than 500 ng/mL d-methamphetamine or other cross-reacting amphetamine compounds are reported as positive. Amphetamine immunoassays are subject to significant false positive rates due to cross-reactivity of non-amphetamine drugs. Confirmatory testing required for definitive results. Current Interpretive Data was last reviewed 2023. Barbiturates, ur Not Detected CutOff 200ng/mL [facility] Comment: Interpretive Data - Barbiturates: Samples containing greater than 200 ng/mL secobarbital or other cross-reacting barbiturate compounds are reported as positive. False positive and false negative results are possible. Confirmatory testing required for definitive results. Current Interpretive Data was last reviewed 2023. Benzodiazepines, ur Screen Positive, presumptive (A) CutOff 100ng/mL [facility] Comment: Interpretive Data - Benzodiazepines: Samples containing greater than 100 ng/mL nordiazepam or other cross-reacting compounds are reported as positive. False positive and false negative results are possible. Confirmatory testing required for definitive results. Current Interpretive Data was last reviewed 2023. Cannabinoids, ur Screen Positive, presumptive (A) CutOff 50 ng/mL [facility] Comment: Interpretive Data - Cannabinoids: Samples containing greater than 50 ng/mL delta-9 THC -COOH or other cross- reacting compounds are reported as positive. False positive and false negative results are possible. Confirmatory testing required for definitive results. Current Interpretive Data was last reviewed 2023. Cocaine, ur Not Detected CutOff 150ng/mL [facility] Comment: Interpretive Data - Cocaine: Samples containing greater than 150 ng/mL benzoylecgonine or other cross- reacting compounds are reported as positive. False positive and false negative results are possible. Confirmatory testing required for definitive results. Current Interpretive Data was last reviewed 2023. Fentanyl, Ur Not Detected CutOff 5 ng/mL [facility] Comment: Interpretive Data - Fentanyl: Samples containing greater than 5 ng/mL norfentanyl, fentanyl, or other cross-reacting fentanyl compounds are reported as positive. False positive and false negative results are possible. Confirmatory testing required for definitive results. Current Interpretive Data was last reviewed 2023. Methadone, ur Not Detected CutOff 300ng/mL [facility] Comment: Interpretive Data - Methadone: Samples [...] PM CDT 12/08/2024 5:35 PM CDT Narrative [facility] - 12/08/2024 5:59 PM CDT Drug of Abuse screening is performed by immunoassay for medical purposes only. This is not to be used for Pain Management purposes. us Aida Barrett NP LAB URINE ORDERABLES Final R esult [facility] [address] [place] [address] * XR Chest 1 View [...] Steve Jean M.D. RW T: Report ID: [id number] Reading Location: [id number] Procedure Note Steve Jean MD - 12/08/2024 [...] Steve Jean M.D. RW T: Report ID: [id number] Reading Location: [id number] us Aida Barrett CLOTHING PATTERNMAKER IMG XR PROCEDURES Final Resu lt * eGFR (12/08/2024 8:10 AM CDT) Pathologist [facility] eGFR 66 >=60 mL/min/1. 73 m2 Comment: [...] MD LAB BLOOD ORDERABLES Final Resu lt [facility] [address] [place] [address] * Differential, auto (12/08/2024 8:10 AM CDT) Pathologist [facility] Neutrophil abs 1.66 1.50 - 6.50 K/cumm Imm gran abs 0.02 0.00 - 0.10 K/cumm [facility] Lymphocyte abs 1.25 0.80 - 3.30 K/cumm [facility] Monocyte abs 0.48 0.20 - 0.80 K/cumm [facility] Eosinophil abs 0.05 0.00 - 0.50 K/cumm [facility] Basophil abs 0.04 0.00 - 0.10 K/cumm [facility] Neutrophil pct 47.5 % [facility] Comment: Interpretive Data Percent cell count reference ranges are not reported, since discordance with absolute values may lead to misinterpretation of CBC data. Current Interpretive Data was last revised on 2017. Imm gran pct 0.6 % [facility] Comment: Interpretive Data Percent cell count reference ranges are not reported, since discordance with absolute values may lead to misinterpretation of CBC data. Current Interpretive Data was last revised on 2017. Lymphocyte pct 35.7 % [facility] Comment: Interpretive Data Percent cell count reference ranges are not reported, since discordance with absolute values may lead to misinterpretation of CBC data. Current Interpretive Data was last revised on 2017. Monocyte pct 13.7 % [facility] Comment: Interpretive Data Percent cell count reference ranges are not reported, since discordance with absolute values may lead to misinterpretation of CBC data. Current Interpretive Data was last revised on 2017. Eosinophil pct 1.4 % [facility] Comment: Interpretive Data Percent cell count reference ranges are not reported, since discordance with absolute values may lead to misinterpretation of CBC data. Current Interpretive Data was last revised on 2017. Basophil pct 1.1 % [facility] Comment: Interpretive Data Percent cell count reference ranges are not reported, since discordance with absolute values may lead to misinterpretation of CBC data. Current Interpretive Data was last revised on 2017. Blood 12/08/2024 8:10 AM CDT 12/08/2024 8:13 AM CDT us Rehab Carlos DUFFY LAB BLOOD ORDERABLES Final Resu lt [facility] [address] [place] [address] * (ABNORMAL) CBC with auto differential (12/08/2024 8:10 AM CDT) WBC 3.50(L) 3.80 - 9.90 K/cumm Hgb 16.3 13.0 - 17.5 g/dL [facility] Hct 46.8 38.9 - 50.3 % [facility] Plt 140(L) 150 - 400 K/cumm [facility] MPV 10.6 9.1 - 12.3 fL [facility] RBC 4.95 4.30 - 5.80 M/cumm [facility] MCV 94.5 81.3 - 96.4 fL [facility] MCH 32.9 27.1 - 33.3 pg [facility] MCHC 34.8 32.3 - 35.7 g/dL [facility] RDW CV 13.3 11.1 - 14.9 % [facility] RDW SD 46.1 35.7 - 48.1 fL [facility] NRBC abs 0.00 0.00 - 0.01 K/cumm [facility] Blood 12/08/2024 8:10 AM CDT 12/08/2024 8:13 AM CDT Maki Gonzalez MD LAB BLOOD ORDERABLES Final Resu lt Performing Organization Address City/[facility]/ZIP Co de Phone Number [address] [place] [address] * (ABNORMAL) Phosphorus (12/08/2024 8:10 AM CDT) Pathologist [facility] Phosphorus, pl 2.2(L) 2.3 - 4.5 mg/dL Blood 12/08/2024 8:10 AM CDT 12/08/2024 8:13 AM CDT Jimbo Slaughter MD LAB BLOOD ORDERABLES Final Result Performing Organization Address City/[facility] Co de Phone Number [address] [place] [address] * Magnesium (12/08/2024 8:10 AM CDT) Pathologist [facility] Magnesium 1.8 1.4 - 2.5 mg/dL Blood 12/08/2024 8:10 AM CDT 12/08/2024 8:13 AM CDT Jimbo Slaughter MD LAB BLOOD ORDERABLES Final Result Performing Organization Address City/[facility] Co de Phone Number [facility] [address] [facility] [place] [address] * (ABNORMAL) Ethanol (12/08/2024 8:10 AM CDT) Ethanol 102(H) <=10 mg/dL Comment: Interpretive Data Legal limit of intoxication > or = 80 mg/dL Levels > or = 400 mg/dL are potentially TOXIC. Current interpretive data was last revised on 2018. Blood 12/08/2024 8:10 AM CDT 12/08/2024 8:13 AM CDT Sol LIANG LAB BLOOD ORDERABL ES Final Result Performing Organization Address [facility] Co de Phone Number [facility] [address] [place] [address] * (ABNORMAL) Comprehensive metabolic panel (12/08/2024 8:10 AM CDT) [facility] Sodium 141 135 - 145 mmol/L Potassium, pl 4.0 3.3 - 4.9 mmol/L [facility] Chloride 109 97 - 110 mmol/L [facility] CO2 22 22 - 32 mmol/L [facility] Anion gap 10 2 - 15 mmol/L [facility] BUN 13 6 - 25 mg/dL [facility] Creatinine 1.29 0.80 - 1.30 mg/dL [facility] Glucose 116 70 - 199 mg/dL [facility] Comment: Interpretive Data Fasting glucose >/= [...] 2022. Calcium 8.9 8.5 - 10.3 mg/dL [facility] Bilirubin, total 0.2 0.1 - 1.2 mg/dL [facility] Protein, pl 6.1(L) 6.5 - 8.5 g/dL [facility] Albumin 3.9 3.5 - 5.0 g/dL [facility] Alk phos 54 40 - 130 Units/L [facility] ALT 14 7 - 55 Units/L [facility] AST 20 10 - 50 Units/L [facility] Blood 12/08/2024 8:10 AM CDT 12/08/2024 8:13 AM CDT us Rehab Carlos DUFFY LAB BLOOD ORDERABLES Final Resu lt [facility] [address] [place] [address] * Surgical pathology (10/26/2024 9:44 AM CDT) Tissue specimen (specimen) (Polyp(s), colon/colorectal, esophageal, gastric) 10/26/2024 9:44 AM CDT Tissue specimen (specimen) (Polyp(s), colon/colorectal, esophageal, gastric) 10/26/2024 9:56 AM CDT Tissue specimen (specimen) (Polyp(s), colon/colorectal, esophageal, gastric) 10/26/2024 10:04 AM CDT Narrative PATHOLOGY [facility] - 10/28/2024 11:54 AM CDT [facility] Department of Pathology [address] [place] [id number] Note to Patients: This report may contain [...] : 1970 (Age: 53) Gender: M Address: [address] [place] [address] Hospital #: [id number] Service: Surgery Location: Patient Type: [facility] OUTPATIENT Taken: 10/26/2024 Received: 10/26/2024 Accessioned: 10/26/2024 [...] this case was performed at [facility], Department of Surgical Pathology, [address] [facility] [place] [id number], [place] [address] CLIA # [id number] us Kareem Polanco MD LAB PATHOLOGY ORDERABLES Final Result PATHOLOGY [facility] * Colonoscopy (10/26/2024 9:23 AM CDT) Anatomical Region Laterality Modality Other Narrative Procedure Note Kareem Polanco MD - 10/26/2024 9:23 AM CDT [facility] GI ENDOSCOPY Patient Name: Rey Arzate Procedure Date: 10/26/2024 9:23 AM Date of : 1970 Admit Type: Outpatient Age: 53 Gender: Male Attending MD: Kareem Polanco M.D. Room: [facility] [facility] 05 Note Status: Finalized Procedure: [...] The scope was passed under direct vision.The [id number] was introduced through theanus and advanced to [...] On: 10/26/2024 9:23 AM Recognized by the [employer] for promoting quality in endoscopy Kareem Polanco MD ENDOSCOPY PROCEDURES Fin al Result * (ABNORMAL) POCT creatinine for contrast evaluation (10/18/2024 10:19 AM CDT) Creatinine POC 1.40(H) 0.80 - 1.30 mg/dL Comment:Testing performed by : [facility], [address] [place] [address]., [address] Blood 10/18/2024 10:1 9 AM CDT 10/18/2024 10:19 AM CDT Edgar Fall MD POINT OF CARE TEST ORDERABLES Final Result [facility] [id number] [facility] [place] [address] * CT Abdomen W WO [...] Justin Victoria M.D. AM: AM Report ID: [id number] Reading Location: [id number] Procedure Note Justin Victoria MD - 10/22/2024 [...] Justin Victoria M.D. AM: AM Report ID: [id number] Reading Location: [id number] Juan C Goodrich MD IMG CT PROCEDURES Final Result * PSA screen (05/22/2024 1:26 PM CDT) PSA 0.92 < OR = 4.00 ng/mL [facility]ct[facility] en[facility] Comment: The total PSA value from [...] MD LAB BLOOD ORDERABLES Final Re sult [facility] [address] [place] [address] from Last 3 Months or Most Recently Relevant to Health Maintenance Insurance [facility] H[facility]/PPO Address[facility] [id number] [place] [id number] [facility] CHO[employer] [facility] H[facility]/PPO Address: [facility] [address] [place] [address] Advance Directives For more information, please contact: [phone] * Full Code (Latest Code Status on File) Date Activated Date Inactivated Comments 12/08/2024 11:56 AM 12/09/2024 4:28 PM * Full Code Date Activated Date Inactivated Comments 01/15/2024 11:27 PM 01/18/2024 5:26 PM Care Teams Risk Manager Relationship Specialty Start Date End Date Edgar Fall MD PCP - General Family Medicine 12/11/23
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
--- OUTSIDE RECORDS SUMMARY | 2025-01-01 02:54 | XMS_ITS | Clinical Summary ---
Author Organization [facility] Office Center Address [address] [place] [address] Care Team Providers Care Watermaster Name Role Phone Edgar Fall MD Primary Care Provider [phone] Allergies No known active allergies Medications fenofibrate [...] (07/20/2022): Added automatically from request for surgery [id number] Rhinitis medicamentosa 04/26/2022 Hypertrophy of both inferior [...] distance OU. Discussed Near [facility] [place] [facility] OU In House Encounter for screening colonoscopy 04/01/2024 11/05/2024 Colon polyp 05/16/2023 11/05/2024 Colon polyps 07/12/2022 04/09/2023 Overview (07/12/2022): Added automatically from request for surgery [id number] Deviated nasal septum 04/26/20222022 Screening for colon cancer 03/20/2022 0 04/09/2023 Overview (03/20/2022): Added automatically from request for surgery [id number] Abnormal fasting glucose 11/08/2017 Depression 11/04/2017 02/21/2023 Elevated BP without diagnosis of hypertension 11/05/19 18 04/09/2023 Anxiety 10/25/2016 11/05/2024 Encounters Date Type Department Care Team Description 12/28/2024 2:02 PM CDT Anesthesia Event [facility] [address] [place] [id number] Wm Reeves MD Taylor-White, Carlotta A. DRAFTING TEACHER 12/28/2024 1:15 PM CDT - 12/28/2024 2:55 PM CDT Surgery [facility] [address] [place] [address] Juan C Goodrich MD RIGHT URETEROSCOPY WITH HOLMIUM LASER LITHOTRIPSY, RETROGRADE PYELOGRAM, URETERAL STENT PLACEMENT 12/28/2024 11:18 AM CDT - 12/28/2024 6:23 PM CDT Hospital Encounter [facility] [address] [place] [address] Juan C Goodrich MD Kidney stone Discharge Disposition: Discharge to home or self care 12/21/2024 Telephone [facility] Surgery [address] [facility] [address] [place] [address] Kaylah Marcelino RMA 12/11/2024 12:55 PM CDT Lab [facility] Lab [address] [place] [address] Kidney stone 12/08/2024 10:01 AM CDT - 12/09/2024 12:10 PM CDT Hospital Encounter [facility] [address] [address] Maki Gonzalez MD Winston, Jared Todd, MD Alcohol withdrawal syndrome with complication (HCC) (Primary Dx) Discharge Disposition: Discharge to home or self care 12/07/2024 Telephone [facility] Family [facility] at [address] [place] [phone] Edgar Fall MD Medical Question/Miscellaneo us 12/02/2024 Orders Only [facility] Surgery [address] [place] [address] [address] [place] [address] Juan C Goodrich MD Kidney stone (Primary Dx) 11/27/2024 Telephone [facility] Surgery [address] [place] [address] [address] [place] [address] Kaylah Marcelino RMA 11/06/2024 Telephone [facility] at [address] [place] [phone] Edgar Fall MD zepbound [place] 11/05/2024 9:00 AM CDT Office Visit [facility] at [address] [place] [phone] Rosalind Mota PA AFTAB (generalized anxiety disorder) (Primary Dx); Hypertriglyceridemia , essential; Primary insomnia; Male hypogonadism; Prediabetes; Vitamin D deficiency; Cigarette nicotine dependence without complication; Obesity (BMI 30-39.9); Screening for prostate cancer 11/03/2024 3:20 PM CDT Telemedicine [facility] Surgery [address] [place] [address] [address] [place] [address] Juan C Goodrich MD Renal cyst (Primary Dx); Kidney stone 10/30/2024 Results Follow-Up [facility] [address] [place] [address] [address] [place] [address] Kareem Polanco MD Surgical pathology 10/26/2024 9:24 AM CDT Anesthesia Event [facility] GI Lab [address] [place] [address] Moriah Bearden MD Suguitan, Karen E., CRNA 10/26/2024 8:30 AM CDT - 10/26/2024 9:00 AM CDT Surgery [facility] GI Lab [address] [place] [address] Kareem Polanco MD COLON REMOVAL SNARE 10/26/2024 7:23 AM CDT - 10/26/2024 10:53 AM CDT Hospital Encounter [facility] GI Lab [address] [place] [address] Kareem Polanco MD Colon polyps Discharge Disposition: Discharge to home or self care 10/23/2024 Orders Only [facility] at [address] [place] [address] Edgar Fall MD AFTAB (generalized anxiety disorder) 10/22/2024 Telephone [facility] at [address] [place] [address] Edgar Fall MD Authorization/Certif ication 10/18/2024 9:55 AM CDT - 10/18/2024 11:59 PM CDT Hospital Encounter [address] [address] Renal cyst Discharge Disposition: Discharge to home [...] uit: Not Asked; Counseling Given: Not Answered [facility] Utilities Answer Date Recorded In the past 12 months has [employer], gas, oil, or water company threatened to [...] often do you attend chur ch or rastafari services? 1 to 4 times per year 12/08/2024 Do you belong to any clubs o r organizations such as anglican groups, unions, fraternal or athletic groups, or [...] any time in the past 12 m cox [place], were you homeless or living in a fpc (including now)? No 12/08/2024 Personal Safety Answer Date Recorded Have you ever been in or are you currently in a harmful physical or emotional relationship or is someone making you feel afraid or unsafe? 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 Gender Identity Not on file Sexual Orientation [...] 05/06/2030 05/06/2020 Medical Devices Implanted Type Area Sulfuric Acid Plant Supervisor Device Identifier Shelf Expiration Date Model / Serial / Lot Plate Left: Leg Description:LEFT LEG [employer] [id number] Fr L28 Cm L145 Cm Radiopaque; Positioner; Filiform Flexible T - [id number] Implanted:Qty: 1 on 12/28/2024 by Juan C Goodrich MD at [facility] Right: Ureter [employer] [id number] 08/25/2027 [id number] / / [id number] Procedures Procedure Name Priority Date/Time Associated Diagnosis Comments FL RETRO PYELO (IN OR) IP Routine 12/28/2024 3:12 PM CDT [place] AN PROCEDURE PLACEHOLDER Routine 12/28/2024 2:20 PM CDT NJ AN ELECTIVE SUPRAGLOTTIC AIRWAY Routine 12/28/2024 2:20 [...] IMG FLUOROSCOPY PROCEDURES Final Result [id number] * NJ AN ELECTIVE SUPRAGLOTTIC AIRWAY, NJ AN PROCEDURE PLACEHOLDER (12/28/2024 2:20 PM CDT) Narrative Imani Hinds CRNA - 12/28/2024 2:20 PM CDT Imani Hinds CRNA 12/28/2024 2:21 PM Airway Patient location: OR Urgency: elective Indications for airway management: anesthesia Difficult airway: no Staff: Supervising provider: Lucas Meléndez DO Placed by: ACQUISITION CONSULTANT: Imani Hinds CRNA Emergent airway documentation: Risks and benefits discussed: yes Consent obtained: yes Airway prep: Preoxygenated: yes Patient position: sniffing MILS maintained throughout: yes Mask difficulty assessment: 0 - not attempted Spontaneous ventilation during airway: absent Sedation level during airway: deep Final airway details: Final airway type: supraglottic airway Final supraglottic airway: [place] SGA size: 5 Number of attempts: 1 us Lucas Meléndez DO ANESTHESIA ORDERABLES Final R esult * Urine culture Urine, bladder (12/11/2024 1:00 PM CDT) Report Final Report: Less than 100,000 colonies/mL (clinically insignificant growth based on current clinical standards) Comment:Testing performed by : [facility], [address] [place]., [address] Organism (CLINICALLY INSIGNIFICANT [facility] Urine, bladder 12/11/2024 1: 00 PM CDT 12/11/2024 7:52 PM CDT Narrative SILVINA - 12/12/2024 9:41 PM CDT Testing performed by [facility] Microbiology Laboratory ([phone]) Juan C Goodrich MD LAB MICROBIOLOGY - GENERAL ORDER YAKELIN Final Result [facility] [address] [facility] Department [place] [address] * eGFR (12/09/2024 2:14 AM [...] 12/09/2024 2:57 AM CDT us Aida Barrett DRAFTING TEACHER LAB BLOOD ORDERABLES Final R esult [facility] [address] [facility] Department [place] [address] * Differential, auto (12/09/2024 2:14 AM CDT) Pathologist [facility] Neutrophil abs 2.89 1.50 - 6.50 K/cumm Imm gran abs 0.03 0.00 - 0.10 K/cumm [facility] Lymphocyte abs 2.09 0.80 - 3.30 K/cumm [facility] Monocyte abs 0.66 0.20 - 0.80 K/cumm [facility] Eosinophil abs 0.11 0.00 - 0.50 K/cumm [facility] Basophil abs 0.05 0.00 - 0.10 K/cumm [facility] Neutrophil pct 49.6 % [facility] Comment: Interpretive Data Percent cell count reference ranges are not reported, since discordance with absolute values may lead to misinterpretation of CBC data. Current Interpretive Data was last revised on 2017. Imm gran pct 0.5 % [facility] Comment: Interpretive Data Percent cell count reference ranges are not reported, since discordance with absolute values may lead to misinterpretation of CBC data. Current Interpretive Data was last revised on 2017. Lymphocyte pct 35.8 % [facility] Comment: Interpretive Data Percent cell count reference ranges are not reported, since discordance with absolute values may lead to misinterpretation of CBC data. Current Interpretive Data was last revised on 2017. Monocyte pct 11.3 % [facility] Comment: Interpretive Data Percent cell count reference ranges are not reported, since discordance with absolute values may lead to misinterpretation of CBC data. Current Interpretive Data was last revised on 2017. Eosinophil pct 1.9 % [facility] Comment: Interpretive Data Percent cell count reference ranges are not reported, since discordance with absolute values may lead to misinterpretation of CBC data. Current Interpretive Data was last revised on 2017. Basophil pct 0.9 % [facility] Comment: Interpretive Data Percent cell count reference ranges are not reported, since discordance with absolute values may lead to misinterpretation of CBC data. Current Interpretive Data was last revised on 2017. Blood 12/09/2024 2:14 AM CDT 12/09/2024 2:58 AM CDT Aida Barrett DRAFTING TEACHER LAB BLOOD ORDERABLES Final R esult Performing Organization Address [facility] Co de Phone Number SILVINA [address] [employer] [place] [place] [address] * (ABNORMAL) CBC with auto differential (12/09/2024 2:14 AM CDT) WBC 5.83 3.80 - 9.90 K/cumm Hgb 16.6 13.0 - 17.5 g/dL [facility] Hct 48.0 38.9 - 50.3 % [facility] Plt 133(L) 150 - 400 K/cumm [facility] MPV 11.5 9.1 - 12.3 fL [facility] RBC 5.11 4.30 - 5.80 M/cumm [facility] MCV 93.9 81.3 - 96.4 fL [facility] MCH 32.5 27.1 - 33.3 pg [facility] MCHC 34.6 32.3 - 35.7 g/dL [facility] RDW CV 13.2 11.1 - 14.9 % [facility] RDW SD 45.4 35.7 - 48.1 fL [facility] NRBC abs 0.00 0.00 - 0.01 K/cumm [facility] Blood 12/09/2024 2:14 AM CDT 12/09/2024 2:58 AM CDT Aida Barrett DRAFTING TEACHER LAB BLOOD ORDERABLES Final R esult Performing Organization Address [facility] Co de Phone Number SILVINA [address] [employer] [place] [place] [address] * Phosphorus (12/09/2024 2:14 AM CDT) [facility] Phosphorus, pl 3.0 2.3 - 4.5 mg/dL Blood 12/09/2024 2:14 AM CDT 12/09/2024 2:57 AM CDT Aida Barrett DRAFTING TEACHER LAB BLOOD ORDERABLES Final [facility] Performing Organization Address [facility] Co de Phone Number [address] [address] * Magnesium (12/09/2024 2:14 AM CDT) [facility] Magnesium 2.0 1.4 - 2.5 mg/dL Blood 12/09/2024 2:14 AM CDT 12/09/2024 2:57 AM CDT Aida Barrett DRAFTING TEACHER LAB BLOOD ORDERABLES Final [facility] Performing Organization Address [facility] de Phone Number [address] [address] * (ABNORMAL) Comprehensive metabolic panel (12/09/2024 2:14 AM CDT) [facility] Sodium 136 135 - 145 mmol/L Potassium, pl 3.7 3.3 - 4.9 mmol/L [facility] Comment:Hemolyzed; Potassium value may be falsely elevated by as much as 1.0 mmol/L. Suggest redraw and reanalysis. Chloride 103 97 - 110 mmol/L [facility] CO2 21(L) 22 - 32 mmol/L [facility] Anion gap 12 2 - 15 mmol/L [facility] BUN 12 6 - 25 mg/dL [facility] Creatinine 1.13 0.80 - 1.30 mg/dL [facility] Glucose 99 70 - 199 mg/dL [facility] Comment: Interpretive Data Fasting glucose >/= 126 [...] 2022. Calcium 9.0 8.5 - 10.3 mg/dL [facility] Bilirubin, total 0.5 0.1 - 1.2 mg/dL [facility] Protein, pl 6.0(L) 6.5 - 8.5 g/dL [facility] Albumin 3.8 3.5 - 5.0 g/dL [facility] Alk phos 49 40 - 130 Units/L [facility] ALT 12 7 - 55 Units/L [facility] AST See Comment 10 - 50 [facility] Comment:Credited; Hemolyzed Specimen Blood 12/09/2024 2:14 AM CDT 12/09/2024 2:57 AM CDT Aida Barrett DRAFTING TEACHER LAB BLOOD ORDERABLES Final R esult [facility] [address] [facility] Department of Laboratories [place], [place] [id number] * (ABNORMAL) Drugs of Abuse Screen, Urine without Confirmation (12/08/2024 5:28 PM CDT) Pathologist [facility] Amphetamine, ur Not Detected CutOff 500ng/mL Comment: Interpretive Data - Amphetamines: Samples containing greater than 500 ng/mL d-methamphetamine or other cross-reacting amphetamine compounds are reported as positive. Amphetamine immunoassays are subject to significant false positive rates due to cross-reactivity of non-amphetamine drugs. Confirmatory testing required for definitive results. Current Interpretive Data was last reviewed 2023. Barbiturates, ur Not Detected CutOff 200ng/mL [facility] Comment: Interpretive Data - Barbiturates: Samples containing greater than 200 ng/mL secobarbital or other cross-reacting barbiturate compounds are reported as positive. False positive and false negative results are possible. Confirmatory testing required for definitive results. Current Interpretive Data was last reviewed 2023. Benzodiazepines, ur Screen Positive, presumptive (A) CutOff 100ng/mL [facility] Comment: Interpretive Data - Benzodiazepines: Samples containing greater than 100 ng/mL nordiazepam or other cross-reacting compounds are reported as positive. False positive and false negative results are possible. Confirmatory testing required for definitive results. Current Interpretive Data was last reviewed 2023. Cannabinoids, ur Screen Positive, presumptive (A) CutOff 50 ng/mL [facility] Comment: Interpretive Data - Cannabinoids: Samples containing greater than 50 ng/mL delta-9 THC -COOH or other cross- reacting compounds are reported as positive. False positive and false negative results are possible. Confirmatory testing required for definitive results. Current Interpretive Data was last reviewed 2023. Cocaine, ur Not Detected CutOff 150ng/mL [facility] Comment: Interpretive Data - Cocaine: Samples containing greater than 150 ng/mL benzoylecgonine or other cross- reacting compounds are reported as positive. False positive and false negative results are possible. Confirmatory testing required for definitive results. Current Interpretive Data was last reviewed 2023. Fentanyl, Ur Not Detected CutOff 5 ng/mL [facility] Comment: Interpretive Data - Fentanyl: Samples containing greater than 5 ng/mL norfentanyl, fentanyl, or other cross-reacting fentanyl compounds are reported as positive. False positive and false negative results are possible. Confirmatory testing required for definitive results. Current Interpretive Data was last reviewed 2023. Methadone, ur Not Detected CutOff 300ng/mL [facility] Comment: Interpretive Data - Methadone: Samples containing greater than 300 ng/mL d,l-methadone or other cross-reacting compounds are reported as positive. False positive and false negative results are possible. Confirmatory testing required for definitive results. Current Interpretive Data was last reviewed 2023. Opiates, ur Not Detected CutOff 300ng/mL [facility] Comment: Interpretive Data - Opiates: Samples containing greater than 300 ng/mL morphine or other cross-reacting compounds are reported as positive. False positive and false negative results are possible. Confirmatory testing required for definitive results. Current Interpretive Data was last reviewed 2023. Oxycodone, ur Not Detected CutOff 100ng/mL [facility] Comment: Interpretive Data - Oxycodone: Samples containing [...] LAB URINE ORDERABLES Final R esult [facility] [address] [facility] Department [place] [address] * XR Chest 1 View (12/08/2024 4:02 [...] Steve Jean M.D. RW T: Report ID: [id number] Reading Location: [id number] Procedure Note Steve Jean MD - 12/08/2024 [...] Steve Jean M.D. RW T: Report ID: [id number] Reading Location: [id number] us Aida Barrett NP IMG XR PROCEDURES [...] DUFFY LAB BLOOD ORDERABLES Final Resu lt [place] [address] [facility] Department [place] [address] * Differential, auto (12/08/2024 8:10 AM CDT) Neutrophil abs 1.66 1.50 - 6.50 K/cumm Imm gran abs 0.02 0.00 - 0.10 K/cumm [facility] Lymphocyte abs 1.25 0.80 - 3.30 K/cumm [facility] Monocyte abs 0.48 0.20 - 0.80 K/cumm [facility] Eosinophil abs 0.05 0.00 - 0.50 K/cumm [facility] Basophil abs 0.04 0.00 - 0.10 K/cumm [facility] Neutrophil pct 47.5 % [facility] Comment: Interpretive Data Percent cell count reference ranges are not reported, since discordance with absolute values may lead to misinterpretation of CBC data. Current Interpretive Data was last revised on 2017. Imm gran pct 0.6 % [facility] Comment: Interpretive Data Percent cell count reference ranges are not reported, since discordance with absolute values may lead to misinterpretation of CBC data. Current Interpretive Data was last revised on 2017. Lymphocyte pct 35.7 % [facility] Comment: Interpretive Data Percent cell count reference ranges are not reported, since discordance with absolute values may lead to misinterpretation of CBC data. Current Interpretive Data was last revised on 2017. Monocyte pct 13.7 % [facility] Comment: Interpretive Data Percent cell count reference ranges are not reported, since discordance with absolute values may lead to misinterpretation of CBC data. Current Interpretive Data was last revised on 2017. Eosinophil pct 1.4 % [facility] Comment: Interpretive Data Percent cell count reference ranges are not reported, since discordance with absolute values may lead to misinterpretation of CBC data. Current Interpretive Data was last revised on 2017. Basophil pct 1.1 % [facility] Comment: Interpretive Data Percent cell count reference ranges are not reported, since discordance with absolute values may lead to misinterpretation of CBC data. Current Interpretive Data was last revised on 2017. Blood 12/08/2024 8:10 AM CDT 12/08/2024 8:13 AM CDT us Rehab Carlos DUFFY LAB BLOOD ORDERABLES Final Resu lt [facility] [address] [facility] Department [place] [address] * (ABNORMAL) CBC with auto differential (12/08/2024 8:10 AM CDT) WBC 3.50(L) 3.80 - 9.90 K/cumm Hgb 16.3 13.0 - 17.5 g/dL [facility] Hct 46.8 38.9 - 50.3 % [facility] Plt 140(L) 150 - 400 K/cumm [facility] MPV 10.6 9.1 - 12.3 fL [facility] RBC 4.95 4.30 - 5.80 M/cumm [facility] MCV 94.5 81.3 - 96.4 fL [facility] MCH 32.9 27.1 - 33.3 pg [facility] MCHC 34.8 32.3 - 35.7 g/dL [facility] RDW CV 13.3 11.1 - 14.9 % [facility] RDW SD 46.1 35.7 - 48.1 fL [facility] NRBC abs 0.00 0.00 - 0.01 K/cumm [facility] Blood 12/08/2024 8:10 AM CDT 12/08/2024 8:13 AM CDT Maki Gonzalez MD LAB BLOOD ORDERABLES Final Resu lt Performing Organization Address [facility] de Phone Number [address] [place] [address] * (ABNORMAL) Phosphorus (12/08/2024 8:10 AM CDT) Phosphorus, pl 2.2(L) 2.3 - 4.5 mg/dL Blood 12/08/2024 8:10 AM CDT 12/08/2024 8:13 AM CDT Jimbo Slaughter MD LAB BLOOD ORDERABLES Final Result Performing Organization Address [facility] de Phone Number [address] [address] * Magnesium (12/08/2024 8:10 AM CDT) Pathologist [facility] Magnesium 1.8 1.4 - 2.5 mg/dL Blood 12/08/2024 8:10 AM CDT 12/08/2024 8:13 AM CDT Jimbo Slaughter MD LAB BLOOD ORDERABLES Final Result Performing Organization Address [facility] de Phone Number [address] [address] * (ABNORMAL) Ethanol (12/08/2024 8:10 AM CDT) Ethanol 102(H) <=10 mg/dL Comment: Interpretive Data Legal limit of intoxication > or = 80 mg/dL Levels > or = 400 mg/dL are potentially TOXIC. Current interpretive data was last revised on 2018. Blood 12/08/2024 8:10 AM CDT 12/08/2024 8:13 AM CDT Sol LIANG LAB BLOOD ORDERABL ES Final Result [facility] [address] [facility] Department [place] [address] * (ABNORMAL) Comprehensive metabolic panel (12/08/2024 8:10 AM CDT) Sodium 141 135 - 145 mmol/L Potassium, pl 4.0 3.3 - 4.9 mmol/L [facility] Chloride 109 97 - 110 mmol/L [facility] CO2 22 22 - 32 mmol/L [facility] Anion gap 10 2 - 15 mmol/L [facility] BUN 13 6 - 25 mg/dL [facility] Creatinine 1.29 0.80 - 1.30 mg/dL [facility] Glucose 116 70 - 199 mg/dL [facility] Comment: Interpretive Data Fasting glucose >/= 126 [...] 2022. Calcium 8.9 8.5 - 10.3 mg/dL [facility] Bilirubin, total 0.2 0.1 - 1.2 mg/dL [facility] Protein, pl 6.1(L) 6.5 - 8.5 g/dL [facility] Albumin 3.9 3.5 - 5.0 g/dL [facility] Alk phos 54 40 - 130 Units/L [facility] ALT 14 7 - 55 Units/L [facility] AST 20 10 - 50 Units/L [facility] Blood 12/08/2024 8:10 AM CDT 12/08/2024 8:13 AM CDT us Rehab Carlos DUFFY LAB BLOOD ORDERABLES Final Resu lt [facility] [address] [facility] Department [place] [address] * Surgical pathology (10/26/2024 9:44 AM CDT) Tissue specimen (specimen) (Polyp(s), colon/colorectal, esophageal, gastric) 10/26/2024 9:44 AM CDT Tissue specimen (specimen) (Polyp(s), colon/colorectal, esophageal, gastric) 10/26/2024 9:56 AM CDT Tissue specimen (specimen) (Polyp(s), colon/colorectal, esophageal, gastric) 10/26/2024 10:04 AM CDT Narrative PATHOLOGY [facility] - 10/28/2024 11:54 AM CDT [facility] Department of Pathology [address] [place] [id number] Note to Patients: This report may contain [...] : 1970 (Age: 53) Gender: M Address: [address] [place] [address] Hospital #: [id number] Service: Surgery Location: Patient Type: [facility] [facility] Taken: 10/26/2024 Received: 10/26/2024 Accessioned: [...] debris. Entirely submitted. Labeled C1. Jar 0. [facility]/10/26/2024 13:46 JUANITA Mullins, PA ([facility] Microscopic slide review and interpretation for this case was performed at [facility], Department of Surgical Pathology, [address] [facility], [place] [id number], [address] # [id number] us Kareem Polanco MD LAB PATHOLOGY ORDERABLES Final Result PATHOLOGY [facility] * Colonoscopy (10/26/2024 9:23 AM CDT) Anatomical Region Laterality Modality Other Narrative Procedure Note Kareem Polanco MD - 10/26/2024 9:23 AM CDT [facility] GI ENDOSCOPY Patient Name: Rey Arzate Procedure Date: 10/26/2024 9:23 AM Date of : 1970 Admit Type: Outpatient Age: 53 Gender: Male Attending MD: Kareem Polanco M.D. Room: [facility] ENDOSCOPY ROOM 05 Note Status: Finalized Procedure: [...] The scope was passed under direct vision.The [id number] was introduced through theanus and advanced to [...] On: 10/26/2024 9:23 AM Recognized by the [employer] for promoting quality in endoscopy us Kareem Polanco MD ENDOSCOPY PROCEDURES Fin al Result * (ABNORMAL) POCT creatinine for contrast evaluation (10/18/2024 10:19 AM CDT) Creatinine POC 1.40(H) 0.80 - 1.30 mg/dL Comment:Testing performed by : [facility], [address] [place] [address], [place]., [address] Blood 10/18/2024 10:1 9 AM CDT 10/18/2024 10:19 AM CDT us Edgar Fall MD POINT OF CARE TEST ORDERABLES Final Result [facility] [address] [facility] Department [place] [address] * CT Abdomen W WO [...] Justin Victoria M.D. AM: AM Report ID: [id number] Reading Location: [place] [address] Procedure Note Justin Victoria MD - 10/22/2024 [...] Justin Victoria M.D. AM: AM Report ID: [id number] Reading Location: [place] [address] Juan C Goodrich MD [facility] CT PROCEDURES Final Result * PSA screen (05/22/2024 1:26 PM CDT) PSA 0.92 < OR = 4.00 ng/mL [facility] Comment: The total PSA value from this assay system is standardized against the WHO standard. The test result will be approximately 20% lower when compared to the equimolar-standardized total PSA ([place] [place]). Comparison of serial PSA results should be [...] MD LAB BLOOD ORDERABLES Final Re sult [facility] [address] [place] [address] from Last 3 Months or Most Recently Relevant to Health Maintenance Insurance [facility] CHOICE PLUS [facility] HMO/PPO Address: [facility] [address] [place] [address] [facility] CHOICE PLUS [facility] HMO/PPO Address: [place] [id number] [place] [id number] Advance Directives For more information, please contact: [phone] * Full Code (Latest Code Status on File) Date Activated Date Inactivated Comments 12/08/2024 11:56 AM 12/09/2024 4:28 PM * Full Code Date Activated Date Inactivated Comments 01/15/2024 11:27 PM 01/18/2024 5:26 PM Care Teams Watermaster Relationship Specialty Start Date End Date Edgar Fall MD PCP - General Family Medicine 12/11/23
--- OUTSIDE RECORDS SUMMARY | 2025-01-01 02:54 | XMS_ITS | Encounter Summary ---
Author Organization [facility] Healthcare Address [address] [place] [address] Care Team Providers Care Theoretical Physicist Name Role Phone Edgar Fall MD Primary Care Provider [phone] Encounter Details Date Type Department Care Team ([facility] st Contact Info) Description 10/30/2024 Results Follow-Up [facility] Primary Care [address] [facility] [address] [place] [address] Kareem Polanco MD [address] [facility] [address] [place] [address] Surgical pathology Social History Tobacco Use Types Packs/Day Years Used Date Smoking Tobacco: Every Day Cigarettes 0.3 39.4 Started: 1985 Smokeless Tobacco: Never [facility] [employer] Answer Date Recorded In the past 12 months has [employer] electric, gas, oil, or water company threatened [...] often do you attend chur ch or jehovah's witness services? 1 to 4 times per year 12/08/2024 Do you belong to any clubs o r organizations such as rastafarian groups, unions, fraternal or athletic groups, or [...] any time in the past 12 m [facility], were you homeless or living in a care home (including now)? No 12/08/2024 Personal Safety Answer Date Recorded Have you ever been in or are you currently in a harmful physical or emotional relationship or is someone making you feel afraid or unsafe? 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 If you develop rectal bleeding or other bowel changes you should be evaluated sooner. documented in this encounter Plan of Treatment Not on file documented as of this encounter Visit Diagnoses Not on filedocumented in this encounter Care Teams Theoretical Physicist Relationship Specialty Start Date End Date Edgar Fall MD PCP - General Family Medicine 12/11/23 documented as of this encounter
--- OUTSIDE RECORDS SUMMARY | 2025-01-01 02:54 | XMS_ITS | Clinical Summary ---
Author Organization [facility] Address [facility] [place] [address] Care Team Providers Care Door Clamp Operator Name Role Phone Unavailable Primary Care Provider Unavailabl e Source Comments [facility],non-owned Affiliates and Associated Physician Practices is amultiple site organization consisting of ambulatory clinics and hospital sitesin [place], [place], [place] and [place]. This disclosure is being madepursuant to the Care Everywhere program and may not contain all information available regarding this patient. 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
[2025-01-01 03:01] LABS: Bacteria Urine None Seen /hpf; Non Pathogenic Casts 0-2; RBC Urine >100 /hpf (0-2); Squamous Epithelial Cell Urine None Seen /hpf (Few)
[2025-01-01 03:03] LABS: Add Urine Microscopic? YES; Appearance Urine Turbid (Clear); Bilirubin Urine 1+ (Negative); Blood Urine 3+ (Negative); Color Urine Dark Amber (Yellow); Glucose Urine UA Negative (Negative); Ketones Urine Negative (Negative); Leukocyte Esterase Ur 1+ LEU/UL (Negative); Nitrate Urine Negative (Negative); Protein Urine 3+ mg/dL (Negative); Specific Grav Ur 1.025 (1.001-1.035); pH Urine 5.5 (5.0-9.0)
[2025-01-01] MEDS: SODIUM CHLORIDE 0.9% IV 1,000 ML 999 ML IV CONT (03:14)
[2025-01-01] MEDS: HYDROmorphone HCL INJ (*CRX) 2 MG/ML VIAL 1 MG IV PUSH (04:19)
[2025-01-01] MEDS: KETOROLAC 15 MG/ML VIAL (*BKC) IV PUSH (07:11)
[2025-01-01] MEDS: TAMSULOSIN HCL 0.4 MG CAPSULE PO (07:11)
== END 2025-01-01 07:21 | disposition home or self-care (01) ==
PROVIDERS: Emergency Provider Student in an Organized Health Care Education/Training Program
DX: N13.2 Hydronephrosis with renal and ureteral calculous obstruction (principal); N17.9 Acute kidney failure, unspecified; Z98.890 Other specified postprocedural states; Z96.0 Presence of urogenital implants
CPT/HCPCS: 36415; 74176; 80053; 81001; 85025; 87086; 96361; 96374; 96375; 96376; 99284; A9270; J1171; J1885; J7030